=== PATIENT | female | born 1965 | race Caucasian/White ===

== ENCOUNTER → 2020-09-27 15:29 | Outpatient (CLI) | payer OTHER, SELFPAY ==
--- NOTE | ~2020-09-27 | MM_ITS ---
EXAMINATION: MM screening [facility] BI w dea HISTORY: Screening TECHNIQUE: Craniocaudal and mediolateral oblique 3-D tomosynthesis images were obtained and synthetic 2-D images were generated. CAD analysis was submitted and interpreted. COMPARISON: Comparison to multiple prior studies sequentially, with oldest reviewed study dated 11/2012. BREAST PARENCHYMAL COMPOSITION: There are scattered areas of fibroglandular density. FINDINGS: There is no evidence of suspicious mass, calcification, or architectural distortion to sugg est malignancy in either breast. There has been no suspicious interval change. IMPRESSION: 1. No mammographic evidence of malignancy. 2. Recommend routine screening mammography in one year. BI-RADS Category 1: Negative Reviewed, dictated and finalized at location A. D SOFTWARE ENGINEER
== END ==
PROVIDERS: Visit Provider Nurse Practitioner Obstetrics & Gynecology
DX: Z12.31 Encounter for screening mammogram for malignant neoplasm of breast (principal)
CPT/HCPCS: 77063; 77067

== ENCOUNTER 2024-02-22 12:07 | Outpatient (CLI) | payer OTHER, SELFPAY ==
[2024-02-22 18:42] LABS: Alanine Aminotransferase 51 U/L (6-35); Albumin Level 4.6 g/dL (3.5-5.1); Alkaline Phosphatase 111 U/L (38-126); Anion Gap 11 mmol/L (4-12); Aspartate Amino Transferase 74 U/L (14-36); Bilirubin,Total 0.6 mg/dL (0.2-1.3); Blood Urea Nitrogen 16 mg/dL (7-17); Calcium 9.8 mg/dL (8.4-10.2); Carbon Dioxide 27 mmol/L (22-30); Chloride 100 mmol/L (98-107); Cholesterol 198 mg/dL (0-200); Estimated Glomerular Filt Rate > 60; Glucose 92 mg/dL (65-110); HDL Direct 50 mg/dL; Magnesium 2.1 mg/dL (1.6-2.3); Potassium 4.3 mmol/L (3.4-5.0); Sodium 138 mmol/L (137-145); Triglycerides 134 mg/dL (<150)
[2024-02-22 18:52] LABS: Basophils Absolute Auto 0.1 K/mm3 (0.0-0.1); Basophils Percent Auto 0.6 % (0.2-1.2); Eosinophils Absolute Auto 0.1 K/mm3 (0-0.3); Eosinophils Percent Auto 0.6 % (0-4.4); Hematocrit 42.3 % (37.0-47.0); Hemoglobin 13.2 g/dL (12.0-15.0); Immature Granulocyte Absolute 0.04 K/mm3 (0.00-0.031); Immature Granulocyte Percent A 0.5 % (0-0.5); Lymphocytes Absolute Auto 1.88 K/mm3 (0.9-3.2); Lymphocytes Percent Auto 21.2 % (18.3-44.2); Mean Corpuscular HGB Conc 31.2 g/dl (32-36); Mean Corpuscular Hemoglobin 26.1 pg (26-34); Mean Corpuscular Volume 83.8 fl (80-100); Mean Platelet Volume 9.5 fl (7.4-10.4); Monocytes Absolute Auto 0.8 K/mm3 (0.1-0.6); Monocytes Percent Auto 8.9 % (2.6-8.5); Neutrophils Percent Auto 68.2 % (45.5-73.1); Platelet Count Result 325 k/mm3 (150-375); Red Blood Count 5.05 M/mm3 (4.2-5.4); White Blood Count 8.9 K/mm3 (4.5-10.0)
[2024-02-22 18:53] LABS: LDL Cholesterol Direct 111 mg/dL
[2024-02-22 19:11] LABS: Hemoglobin A1C 6.1 % (<5.7)
[2024-02-22 19:48] LABS: Folic Acid 14.5 ng/mL (2.76->20)
== END 2024-02-22 12:08 | disposition home or self-care (01) ==
PROVIDERS: PCP Nurse Practitioner Adult Health; Visit Provider Nurse Practitioner Adult Health
DX: E66.9 Obesity, unspecified (principal); I10 Essential (primary) hypertension; Z13.9 Encounter for screening, unspecified
CPT/HCPCS: 36415; 80053; 80061; 82607; 82746; 83036; 83735; 84443; 85025

== ENCOUNTER 2024-02-29 09:51 | Outpatient (CLI) | payer OTHER, SELFPAY ==
--- NOTE | ~2024-02-29 | CT_ITS ---
CT Scan of the Chest without Contrast: Clinical Indication: Chronic cough Technique: Contiguous sections were acquired throughout the chest without intravenous contrast. Dose reduction technique was used on this scan by utilizing automated exposure control and iterative recon struction technique. The dose-length product (DLP) was 309.02 mGy-cm. Findings: There is no evidence of any significant mediastinal, hilar or axillary lymphadenopathy. The mediastin al soft tissues appear normal. There is no evidence of pleural or pericardial effusion. The lungs are clear, aside from calcified right basilar granuloma. Images through the upper abdomen reveal no abnormalities. There are mild chronic compression deformit ies in the midthoracic spine. Impression: No significant abnormalities seen. Reviewed, dictated and finalized at location . Impression: No significant abnormalities seen.
== END 2024-02-29 09:52 ==
LOC: MICIMG 09:52
PROVIDERS: PCP Nurse Practitioner Adult Health; Visit Provider Nurse Practitioner Adult Health
DX: R05.3 Chronic cough (principal)
CPT/HCPCS: 71250

== ENCOUNTER 2024-03-09 09:36 | Outpatient (CLI) | payer OTHER, SELFPAY ==
--- NOTE | ~2024-03-09 | MM_ITS ---
EXAMINATION: MM screening [facility] BI w dea HISTORY: Screening TECHNIQUE: Craniocaudal and mediolateral oblique 3-D tomosynthesis images were obtained and synthetic 2-D images were generated. CAD analysis was submitted and interpreted. COMPARISON: Comparison to multiple prior studies sequentially, with oldest reviewed study dated 10/08. BREAST PARENCHYMAL COMPOSITION: Not Dense. The breasts are almost entirely fatty. FINDINGS: There is no evidence of suspicious mass, calcification, or architectural distortion to sugg est malignancy in either breast. There has been no suspicious interval change. IMPRESSION: 1. No mammographic evidence of malignancy. 2. Recommend routine screening mammography in one year. BI-RADS Category 1: Negative Reviewed, dictated and finalized at location B.
== END 2024-03-09 09:37 ==
LOC: MICIMG 09:37
PROVIDERS: PCP Nurse Practitioner Adult Health; Visit Provider Nurse Practitioner Adult Health
DX: Z12.31 Encounter for screening mammogram for malignant neoplasm of breast (principal)
CPT/HCPCS: 77063; 77067

== ENCOUNTER 2024-03-29 09:40 | Outpatient (CLI) | payer OTHER, SELFPAY ==
[2024-03-29 19:45] LABS: D Dimer 0.33 ug/mL (<0.48)
== END 2024-03-29 09:41 | disposition home or self-care (01) ==
LOC: ANHBWCLAB 09:43
PROVIDERS: PCP Nurse Practitioner Adult Health; Visit Provider Nurse Practitioner Adult Health
DX: R05.3 Chronic cough (principal)
CPT/HCPCS: 36415; 85380

== ENCOUNTER 2024-04-11 09:53 | Outpatient (CLI) | payer OTHER, SELFPAY ==
--- NOTE | 2024-04-13 08:40 | WPDPFTINT ---
PFT Procedure Performed PFT Procedure Performed Spirometry with Pre/Post Bronchodilator Plethysmography (Lung Vol) Diffusing Cap (DLCO) Flow Vol Loop PFT Interpretation Lung volumes were measured with the body plethysmography method. Lung volumes are unremarkable. Spirometry showed normal expiratory flow rates and a normal FEV1 to FVC ratio of 75%. Following administration of a bronchodilator there was no significant increase in expiratory flow rates. Lung diffusion capacity is within the normal range at 83% predicted. The flow-volume loop is unremarkable. Impression: Spirometry, lung volumes, and lung diffusion capacity all within the normal range.
--- NOTE | 2024-04-13 08:41 | WPDSIXMINUTE ---
Six Minute Walk Procedure Procedure Performed Pulmonary Stress Test (6 min walk) Six Minute Walk Six Minute Walk: This 6 minute walk test was carried out with the patient breathing ambient air. The baseline pre walk oxyhemoglobin saturation was 99%. The patient walked 335 m with no stops during testing. During the walk the oxyhemoglobin saturation remained in the range of 98% to 100%. Impression: No evidence of oxyhemoglobin desaturation on this testing.
== END 2024-04-11 09:54 | disposition home or self-care (01) ==
LOC: ANHPFT 09:55
PROVIDERS: PCP Nurse Practitioner Adult Health; Visit Provider Physician Assistant
DX: R05.9 Cough, unspecified (principal); R06.02 Shortness of breath
CPT/HCPCS: 94060; 94618; 94726; 94729

== ENCOUNTER 2024-05-31 12:40 | Outpatient (CLI) | payer OTHER, SELFPAY ==
[2024-05-31 21:19] LABS: Alanine Aminotransferase 56 U/L (6-35); Albumin Level 4.6 g/dL (3.5-5.1); Alkaline Phosphatase 88 U/L (38-126); Anion Gap 12 mmol/L (4-12); Aspartate Amino Transferase 68 U/L (14-36); Bilirubin,Total 0.5 mg/dL (0.2-1.3); Blood Urea Nitrogen 14 mg/dL (7-17); Calcium 9.7 mg/dL (8.4-10.2); Carbon Dioxide 25 mmol/L (22-30); Chloride 100 mmol/L (98-107); Estimated Glomerular Filt Rate > 60; Glucose 104 mg/dL (65-110); Sodium 137 mmol/L (137-145)
[2024-05-31 22:05] LABS: Hemoglobin A1C 5.9 % (<5.7)
== END 2024-05-31 12:41 | disposition home or self-care (01) ==
LOC: ANHBWCLAB 12:41
PROVIDERS: PCP Nurse Practitioner Adult Health; Visit Provider Nurse Practitioner Adult Health
DX: R73.03 Prediabetes (principal); I10 Essential (primary) hypertension; Z51.81 Encounter for therapeutic drug level monitoring; Z79.899 Other long term (current) drug therapy
CPT/HCPCS: 36415; 80053; 82607; 83036; 84443

== ENCOUNTER 2024-10-31 15:12 | Outpatient (CLI) | payer OTHER, SELFPAY ==
--- OUTSIDE RECORDS SUMMARY | 2024-10-31 16:34 | XMS_ITS | Clinical Summary ---
Author Organization [facility] Address [facility] [place] [address] Care Team Providers Care Plumber'S Assistant Name Role Phone Unavailable Primary Care Provider Unavailabl e Source Comments [facility],non-owned Affiliates and Associated Physician Practices is amultiple site organization consisting of ambulatory clinics and hospital sitesin [place], [place], [place]. This disclosure is being madepursuant to the Care Everywhere program and may not contain all information available regarding this patient. Last updated 18.[facility] Allergies Active Allergy Reactions Criticality Noted Date Comments Codeine Other,Rash Medium 10/16/2016 Reaction: neel, Goyo Penicillins Other Low 10/16/2016 shakes Medications * Be aware that medications may not be up to date on this document. Alwaysverify current medications with the patient. Medication Sig Dispensed Refills Start Date End Date Status Loratadine 10 MG Take 10 mg by mouth once daily Active metoprolol tartrate (LOPRESSOR) 50 MG tablet Take 50 mg by mouth 2 times daily 02/03/2018 Active pantoprazole EC (PROTONIX) 40 MG tablet Take 40 mg by mouth 02/03/2018 Active fluticasone propionate (FLONASE) 50 MCG/ACT nasal spray [place] 1 spray into each nostril 2 times daily 1 bottles 11/15/2018 Active benzonatate (TESSALON) 200 MG capsule Take 1 capsule by mouth 3 times daily as needed for Cough 30 capsule 11/15/2018 Active Social History Tobacco Use Types Packs/Day Years Used Date Smoking Tobacco: Never Assessed Sex and Gender Information Value Date Recorded Sex Assigned at Not on file Gender Identity Not on file Sexual Orientation Not on file Last Filed Vital Signs Vital Sign Reading Time Taken Comments Blood Pressure 108/60 11/15/2018 12:22 PM CDT Pulse 79 11/15/2018 12:22 PM CDT Temperature 36.8 C (98.3 F) 11/15/2018 12:22 PM CDT Respiratory Rate - - Oxygen Saturation 97% 11/15/2018 12:22 PM CDT Inhaled Oxygen Concentration - - Weight 63.5 kg (140 lb) 11/15/2018 12:22 PM CDT Height 154.9 cm (5' 1 ) 11/15/2018 12:22 PM CDT Body Mass Index 26.45 11/15/2018 12:22 PM CDT Plan of Treatment Health Maintenance Due Date Last Done Comments COLOGUARD (AGES 45-75) - COL ON CA SCREENING 1964 COLON MONITORING 1964 COLONOSCOPY - COLON CA SCREENING 1964 CT COLONOGRAPHY - COLON CA SCREENING 1964 Colorectal Cancer Screening 1964 FIT - COLON CA SCREENING 1964 FLEX SIG - COLON CA SCREENING 1964 LIPID TESTING 1964 MAMMOGRAM 1964 PAP SMEAR 1964 HIV SCREENING 1979 HEPATITIS C SCREENING 08/02/1982 DTAP/TDAP/TD VACCINES (1 - Tdap) 1983 PNEUMOCOCCAL VACCINE 50+ (1 of 1 - PCV) 2014 ZOSTER VACCINE (1 of 2) 2014 SCREENING FOR DIABETES 11/15/2018 COVID-19 VACCINE ( - 2023-2 5 season) 2024 DEPRESSION SCREENING 07/26/2024 INFLUENZA VACCINE (Season Ended) 2025 Respiratory Syncytial Virus (RSV) Vaccine Pt: or over 60 yrs (1 - 1-dose 75+ series) 2039 HEPATITIS B VACCINE Aged Out No longe r eligible based on patient's age to complete this topic HIB VACCINE Aged Out No longer eligi ble based on patient's age to complete this topic HPV VACCINE Aged Out No longer eligi ble based on patient's age to complete this topic MENINGOCOCCAL (Group B) VACC INE SHARED DECISION-MAKING Aged Out No longer eligibl e based on patient's age to complete this topic MENINGOCOCCAL GROUPS A/C/Y/W VACCINE Aged Out No longer eligible b ased on patient's age to complete this topic PNEUMOCOCCAL VACCINE Aged Out No long er eligible based on patient's age to complete this topic Cha Spicer Personal/Family Self 1965 [address] [id number]
--- OUTSIDE RECORDS SUMMARY | 2024-10-31 16:34 | XMS_ITS | Clinical Summary ---
Author Organization [facility] [place] Address [address] [place] [address] Care Team Providers Care Liner Installer Name Role Phone Hari Zheng MD Primary Care Provider [phone] Allergies Active Allergy Reactions Criticality Noted Date Comments Codeine Other (See Comments),Rash Low 10/16/2016 Reaction: shaky, Shakes Penicillins Other (See Comments) Low 10/16/2016 shakes Sulfamethoxazole-Trimet hoprim Unknown 10/01/2023 Medications cetirizine (ZyrTEC) 10 mg tabletIndication s:Seasonal allergic rhinitis, unspecified trigger Take 1 Tablet (10 mg) by mouth daily at bedtime. 0 2 Active famotidine (PEPCID) 20 mg tablet Take 1 Tablet (20 mg) by mouth 2 times daily. 60 Tablet 3 Active albuterol sulfate HFA 90 mcg/actuation aerosol inhaler Take 1 Puff by inhalation every 6 hours as needed. Active fluticasone furoate (ARNUITY) 200 mcg/actuation inhaler Take 200 mcg by inhalation daily. Active esomeprazole (NexIUM) 40 mg Capsule, Delayed Release(E.C.)Ind ications:Gastroe sophageal reflux disease, unspecified whether esophagitis present Take 1 Capsule (40 mg) by mouth daily before breakfast. 90 Capsule 4 Active Breztri Aerosphere 160 mcg-9mcg-4.8mcg/ actuation HFA aerosol inhaler 4 Active metFORMIN (FORTAMET) 500 mg Extended Release 24 hour tablet Take 500 mg by mouth daily with breakfast. Active montelukast (SINGULAIR) 10 mg tablet 4 Active PARoxetine HCl (PAXIL) 20 mg tablet 20 mg. 4 Active Xhance 93 mcg/actuation Aerosol Breath Activated 4 Active ipratropium bromide (ATROVENT) 21 mcg (0.03 %) [place], Non-Aerosol 4 Active hydroCHLOROthiaz mateus (MICROZIDE) 12.5 mg capsuleIndicatio ns:HTN (hypertension), benign Take 1 Capsule (12.5 mg) by mouth daily. 90 Capsule 4 Active Active Problems Problem Noted Date Diagnosed Date Bradycardia 01/19/2022 Low HDL (under 40) 01/19/2022 Acid reflux 08/13/2020 Vaginal atrophy 07/17/2020 Anxiety state 05/15/2020 Allergic rhinitis 09/09/2018 HTN (hypertension), benign 04/08/2018 Vaginitis and vulvovaginitis 09/21/2011 Encounters Date Type Department Care Team Description 10/24/2024 External Device Data [facility] ABSTRACTION Provider, Abstract 10/11/2024 External Device Data [facility] ABSTRACTION Provider, Abstract 10/04/2024 External Device Data [facility] ABSTRACTION Provider, Abstract 10/03/2024 External Device Data [facility] ABSTRACTION Provider, Abstract 10/02/2024 External Device Data [facility] ABSTRACTION Provider, Abstract 09/30/2024 External Device Data [facility] ABSTRACTION Provider, Abstract 09/29/2024 External Device Data [facility] ABSTRACTION Provider, Abstract 09/27/2024 External Device Data [facility] ABSTRACTION Provider, Abstract 09/13/2024 External Device Data [facility] ABSTRACTION Provider, Abstract 08/17/2024 External Device Data [facility] ABSTRACTION Provider, Abstract 08/08/2024 External Device Data [facility] ABSTRACTION Provider, Abstract from Last 3 Months Immunizations Immunization Administration Dates Next Due (INFANRIX)(6 WKS-6 YRS) DIPT HERIA, TETANUS TOXOIDS, AND ACCELLULAR PERTUSSIS VACCINE (DTAP), 0.5 ML IM 10/17/2013 Family History Medical History Relation Name Comments Unknown Brother 1 No Known Problems Brother 2 No Known Problems Daughter Unknown Father Unknown Maternal Grandfather Unknown Maternal Grandmother Other Mother guillian barre syndrome Unknown Paternal Grandfather Unknown Paternal Grandmother Crohn's Disease Son Relation Name Status Comments Brother 1 Brother 2 Alive Daughter Alive Father Maternal Grandfather Maternal Grandmother Mother Paternal Grandfather Paternal Grandmother Son Alive Social History Tobacco Use Types Packs/Day Years Used Date Smoking Tobacco: Never Smokeless Tobacco: Never Alcohol Use Standard Drinks/Week Comments No 0 (1 standard drink = 0.6 oz pur e alcohol) Comments No Sex and Gender Information Value Date Recorded Sex Assigned at Not on file Legal Sex Female 9:19 AM CDT Gender Identity Not on file Sexual Orientation Not on file Last Filed Vital Signs Vital Sign Reading Time Taken Comments Blood Pressure 128/78 07/10/2024 1:39 PM BOOKBINDING MACHINE OPERATOR Pulse 85 07/10/2024 1:39 PM BOOKBINDING MACHINE OPERATOR Temperature 37.1 C (98.8 F) 07/10/2024 1:39 PM BOOKBINDING MACHINE OPERATOR Respiratory Rate 18 07/10/2024 1:39 PM BOOKBINDING MACHINE OPERATOR Oxygen Saturation 98% 07/10/2024 1:39 PM BOOKBINDING MACHINE OPERATOR Inhaled Oxygen Concentration - - Weight 73.5 kg (162 lb) 07/10/2024 1:39 PM BOOKBINDING MACHINE OPERATOR Height 154.9 cm (5' 1 ) 07/10/2024 1:39 PM BOOKBINDING MACHINE OPERATOR Body Mass Index 30.61 07/10/2024 1:39 PM BOOKBINDING MACHINE OPERATOR Plan of Treatment Upcoming Encounters Date Type Department Care Team (Late st Contact Info) Description 01/01/2025 2:00 PM CDT Office Visit [facility] [employer] [place] [address] [place] [address] Rehana Lu, ANP [address] [facility] Tatyana Pres[address] [place] [address] Health Maintenance Due Date Last Done Comments HPV/Cotest (21-29) 1985 HPV/Cotest (30-65) 1994 FIT-DNA Q 3 years 2009 Flex Sig/CT Colonography Q 5 years 2009 BREAST CANCER SCREENING 12/24/2018 12/25/19 18 (Previously completed) FIT/FOBT Q 1 year 09/24/2019 09/23/2018 CERVICAL CANCER SCREENING 09/23/2021 PAP SMEAR 09/23/2021 09/23/2018 PAP SMEAR 09/23/2021 09/23/2018, 09/23/2018 COLORECTAL SCREENING 12/24/2022 12/24/2017 (Previously completed), 08/26/2014 Colorectal Cancer Screening 12/24/2022 DTAP/TDAP/TD VACCINES (2 - Tdap) 10/18/2023 10/17/2013 INFLUENZA VACCINE (#1) 2024 05/22/2022 Pre-Diabetes and Diabetes Screening 01/12/2025 01/12/2022 ZOSTER VACCINE (1 of 2) 02/25/2026 Post poned from 2014 (Patient Refused) RSV VACCINE (60+ or ) (1 - 1-dose 75+ series) 2039 HEPATITIS B VACCINES Aged Out No long er eligible based on patient's age to complete this topic Procedures Procedure Name Priority Date/Time Associated Diagnosis Comments HEMOGLOBIN A1C Routine 01/12/2022 7:14 AM CDT Encounter for annual physical exam CERV/VAG CYTO SCREEN PAP W/O HPV Routine 09/23/2018 10:25 AM BOOKBINDING MACHINE OPERATOR Screening for cervical cancer POC OCCULT BLOOD 1 CARD Routine 09/23/2018 10:07 AM BOOKBINDING MACHINE OPERATOR Screening for condition from Last 3 Months or Most Recently Relevant to Health Maintenance Results * HEMOGLOBIN A1C (01/12/2022 7:14 AM CDT) HEMOGLOBIN A1C 5.6 <5.7 % of total Hgb [facility] Comment: For the purpose of screening for the presence of diabetes: <5.7% Consistent with the absence of diabetes 5.7-6.4% Consistent with increased risk for diabetes (prediabetes) > or =6.5% Consistent with diabetes This assay result is consistent with a decreased risk of diabetes. Currently, no consensus exists regarding use of hemoglobin A1c for diagnosis of diabetes in children. According to [place] Diabetes Association (ADA) guidelines, hemoglobin A1c <7.0% represents optimal control in non- diabetic patients. Different metrics may apply to specific patient populations. Standards of Medical Care in Diabetes(ADA). ESTIMATED AVERAGE GLUCOSE (MG/DL) 114 mg/dL [facility] ESTIMATED AVERAGE GLUCOSE (MMOL/L) 6.3 mmol/L [facility] Comment: Test Performed at: [facility] [address] [address] [facility] [place] [address] Arnoldo Estrada D.O., MPH Blood 01/12/2022 7:14 AM CDT 01/13/2022 4:51 AM CDT Sarah Cramer TELEMARKETING SALES REPRESENTATIVE CHEMISTRY ORDERABLES F inal Result [facility] [phone] * CERV/VAG CYTO SCREEN PAP W/O HPV (09/23/2018 10:25 AM BOOKBINDING MACHINE OPERATOR) DIAGNOSIS (PAP): Comment [facility] Comment:UNSATISFACTORY FOR E VALUATION. Meal Attendant Recommendation Comment [facility] Comment:Suggest follow up as clinically appropriate. ADEQUACY: Comment [facility] Comment: Specimen processed and examined but unsatisfactory for evaluation of epithelial abnormality because of insufficient cellularity. CLINICIAN PROVIDED ICD10 Comment [facility] Comment:Z12.4 PERFORMED BY (PAP): Comment [facility] Comment:Laurel Johnson, Cytot echnologist (ASCP) QC REVIEWED BY: Comment [facility] Comment:Sophia Padilla Dispatcher Motor Vehicle (ASCP) RESULT (PAP): . [facility] SEE NOTE (PAP): Comment [facility] Comment: The Pap smear is a screening test designed to aid in the detection of premalignant and malignant conditions of the uterine cervix. It is not a diagnostic procedure and should not be used as the sole means of detecting cervical cancer. Both false-positive and false-negative reports do occur. CYTOLOGY NURSE GYNECOLOGY METHODOLOGY CANCELED [facility] Comment: The Thin Prep(R) Emergency Communications Operator was unable to read this specimen. Therefore a manual review was performed. Result canceled by the ancillary Genital SWAB OF ENDOCERVIX / Unknown 09/23/2018 10:25 AM BOOKBINDING MACHINE OPERATOR 09/23/2018 Narrative [facility] - 09/28/2018 12:36 PM BOOKBINDING MACHINE OPERATOR Performed at: [address] [place] [address] [place] [id number] Optical Instrument Specialist: Lilian Avina MD, Phone: [phone] Specimen Comment: No. of containers..01 ThinPrep Vial us Francheska Lewis NP PATHOLOGY/CYTOLOGY BLASMandy ESCALERA Edited Result - Final [facility] [phone] * POC OCCULT BLOOD 1 CARD (09/23/2018 10:07 AM BOOKBINDING MACHINE OPERATOR) OCCULT BLOOD 1 CARD POC Negative Negative [facility] [place] INTERNAL KIT QC Pass Pass [facility] CARD LOT NUMBER POC [id number] [facility] [place] C[place] EXP[place] DATE POC 09/2019 [facility] [place] DEV[place]OPER [address] NUM[address] POC [id number] [facility] [place] EX[place] DATE POC 12/2021 [facility] [place] Stool STOOL SPECIMEN / Unknown 09/23/2018 10:07 AM BOOKBINDING MACHINE OPERATOR us Francheska Lewis NP POINT OF CARE TESTING F inal Result Performing Organization Address [facility] Co de Phone Number [facility] CLIA# [id number] [address] [place] [address] from Last 3 Months or Most Recently Relevant to Health Maintenance Insurance [employer]LEGIAN OPEN ACCESS * Guarantor: [employer] Account Type Relation to Patient Date of Phone Billing Address Corporate Employer ATTN: ARLET SCHUSTER [address] [address] Care Teams Liner Installer Relationship Specialty Start Date End Date Hari Zheng MD [address] [place] [phone] PCP - General Family Practice 03/23/23
--- OUTSIDE RECORDS SUMMARY | 2024-10-31 16:34 | XMS_ITS | Referral Summary ---
Author Organization [facility] Address [address] [place] [address] Care Team Providers Care Director Of Operations Name Role Phone Miscellaneous, Not In File Unavailable Unava Alejandra Dasilva NP Primary Care Provider Encounters Date Type Department Care Team Description 10/06/2024 Telephone [facility] [place] [address] [place] [address] Stefani Castro MA 10/05/2024 2:45 PM CDT Office Visit [facility] [place] [address] [place] [address] Kelly Babin NP Acute bacterial sinusitis (Primary Dx) 08/31/2024 12:00 PM INSPECTION AND TESTING SUPERVISOR Office Visit [facility] [place] [address] [place] [id number] Kelly Babin NP Viral URI with cough (Primary Dx) from Last 3 Months Allergies Active Allergy Reactions Criticality Noted Date Comments Codeine Other (See comments),Rash Medium 10/16/2016 Reaction: shaky, Reaction: shaky, Shakes Penicillins Other (See comments) Low 10/16/2016 shakes Sulfamethoxazole-Trimet hoprim Other (See comments) Low 04/21/2020 Causes shakes Medications atenolol (TENORMIN) 50 mg tablet Take 1 tablet (50 mg total) by mouth 2 times daily 9 Active azelastine (ASTELIN) 137 mcg (0.1 %) nasal spray [address] (NexIUM) 40 mg capsule Take 1 capsule (40 mg total) by mouth daily before breakfast Active PARoxetine (PAXIL) 10 mg tablet paroxetine 10 mg tablet TAKE 1 TABLET EVERY DAY BY ORAL ROUTE. Active fluticasone propionate (FLONASE) 50 mcg/actuation nasal sprayIndication s:Fluid level behind tympanic membrane of right ear Administer 2 sprays into each nostril daily 16 g 5 2 Active Additional Information Patient not taking.Reported on 08/17/2022 ondansetron (Zofran) 4 mg tabletIndicatio ns:Post-nasal drip Take 1 tablet (4 mg total) by mouth every 8 (eight) hours as needed for nausea or vomiting 20 tablet 2 Active metFORMIN (FORTAMET) 500 mg 24 hr tablet Take 1 tablet (500 mg total) by mouth daily with breakfast Active benzonatate (TESSALON) 100 mg capsuleIndicati ons:Cough Take 2 capsules (200 mg total) by mouth 3 (three) times a day as needed for cough 42 capsule 4 Active Additional Information Patient not taking.Reported on 10/05/2024 doxycycline (VIBRAMYCIN) 100 mg capsuleIndicati ons:Acute bacterial sinusitis Take 1 tablet/capsule (100 mg total) by mouth 2 (two) times a day for 7 days 14 tablet/capsu le 5 10/13/19 25 Active Problems Problem Noted Date Diagnosed Date Shortness of breath 04/28/2020 Assessment & Plan (04/28/2020 4:06 AM CDT): With chest pressure. Suspect component of anxiety and stress. Patient states her symptoms seem to have resolved after receiving Ativan. Will also check TSH as patient has had 10 lb unintentional weight loss since her symptoms began. Troponin negative x1. Will repeat. Continue to monitor. Will check ambulatory O2 patient becomes short of breath as she also becomes lightheaded and dizzy. This was discussed with RN. Essential hypertension 04/28/2020 Assessment & Plan (04/28/2020 4:06 AM CDT): Continue atenolol with hold parameters GERD (gastroesophageal reflux disease) 0 Assessment & Plan (04/28/2020 4:06 AM CDT): Continue PPI Hypokalemia 04/28/2020 Assessment & Plan (04/28/2020 4:06 AM CDT): Replacement given. Will await repeat. Replace as needed. Chronic sinusitis 04/28/2020 Assessment & Plan (04/28/2020 4:06 AM CDT): Continue Claritin. Outpatient follow-up with ENT. Anxiety 04/28/2020 Exertional angina Social History Tobacco Use Types Packs/Day Years Used Date Smoking Tobacco: Never Smokeless Tobacco: Never Tobacco Cessation:Counseling Given: Not Answered Alcohol Use Standard Drinks/Week Comments No 0 (1 standard drink = 0.6 oz pur e alcohol) Comments No Sex and Gender Information Value Date Recorded Sex Assigned at Not on file Legal Sex Female 11:49 PM INSPECTION AND TESTING SUPERVISOR Gender Identity Not on file Sexual Orientation Not on file Last Filed Vital Signs Vital Sign Reading Time Taken Comments Blood Pressure 134/76 10/05/2024 2:48 PM CDT Pulse 86 10/05/2024 2:48 PM CDT Temperature 36.7 C (98 F) 10/05/2024 2:48 PM CDT Respiratory Rate 16 10/05/2024 2:48 PM CDT Oxygen Saturation 100% 10/05/2024 2:48 PM CDT Inhaled Oxygen Concentration - - Weight 66.7 kg (147 lb) 10/05/2024 2:48 PM CDT Height 154.9 cm (5' 1 ) 10/05/2024 2:48 PM CDT Body Mass Index 27.78 10/05/2024 2:48 PM CDT Plan of Treatment Not on file Procedures Procedure Name Priority Date/Time Associated Diagnosis Comments POC INFLUENZA A/B, COVID-19 ANTIGEN Routine 08/31/2024 12:35 PM INSPECTION AND TESTING SUPERVISOR Viral URI with cough from Last 3 Months Results * POC Influenza A/B, COVID-19 antigen (08/31/2024 12:35 PM INSPECTION AND TESTING SUPERVISOR) Influenza A Ag, POC Negative Negative [facility] Influenza B Ag, POC Negative Negative [facility] COVID-19 Ag POC Presumptive Negative Presumptive Negative, Invalid [facility] Nasal 08/31/2024 12:3 5 PM INSPECTION AND TESTING SUPERVISOR us Kelly Babin STUD MASTER/MISTRESS POINT OF CARE TEST ORDERABLES Final Result [facility] [address] [place] [address], [facility] from Last 3 Months Insurance [facility] [employer] Advance Directives For more information, please contact: [phone] * Full Code (Latest Code Status on File) Date Activated Date Inactivated Comments 04/27/2020 9:34 PM 04/28/2020 4:30 PM Care Teams Director Of Operations Relationship Specialty Start Date End Date Alejandra Malave NP [address] [place] [id number] PCP - General Nurse Practitioner 02/23/24 Miscellaneous, Not In File 04/28/20
--- OUTSIDE RECORDS SUMMARY | 2024-10-31 16:34 | XMS_ITS | Clinical Summary ---
Author Organization [facility] Address [address] [place] [address] Care Team Providers Care Medical Billing Representative Name Role Phone Miscellaneous, Not In File Unavailable Unava Alejandra Dasilva NP Primary Care Provider [phone] Allergies Active Allergy Reactions Criticality Noted Date [...] follow-up with ENT. Anxiety 04/28/2020 Exertional angina Encounters Date Type Department Care Team Description 10/06/2024 Telephone [facility] [place] [address] [place] [address] Stefani Castro VALARIE 10/05/2024 2:45 PM CDT Office Visit [facility] at [address] [place] [address] Kelly Babin NP Acute bacterial sinusitis (Primary Dx) 08/31/2024 12:00 PM FLIGHT ENGINEER MANAGER Office Visit [facility] at [address] [place] [address] Kelly Babin NP Viral URI with cough (Primary Dx) from Last 3 Months Surgical History Surgery Date Site/Laterality Comments SECTION section OTHER SURGICAL HISTORY polyps: sinus surgery TUBAL LIGATION Bilateral tubal ligation OTHER SURGICAL HISTORY D&C Medical History Medical History Date Comments Endometritis endometriosis Hx Other Medical Headache, migra ine Hx Other Medical polyps Hx Other Medical lumbago Hx Other Medical 01-mat roller Hx Other Medical 02-ENT GERD (gastroesophageal reflux disease) Hypertension Family History Medical History Relation Name Comments Other Father AIDS; Cause of : AIDS/HIV; Hypertension Mother Hypertension; Other Mother Alive and well; Relation Name Status Comments Father Alive Mother Alive Social History Tobacco Use Types Packs/Day Years Used Date Smoking Tobacco: Never Smokeless Tobacco: Never Tobacco Cessation:Counseling Given: Not Answered Alcohol Use Standard Drinks/Week Comments No 0 (1 standard drink = 0.6 oz pur e alcohol) Comments No Sex and Gender Information Value Date Recorded Sex Assigned at Not on file Legal Sex Female 11:49 PM FLIGHT ENGINEER MANAGER Gender Identity Not on file Sexual Orientation Not on file Obstetrics History Last Filed Vital Signs Vital Sign Reading [...] 10/05/2024 2:48 PM CDT Plan of Treatment Health Maintenance Due Date Last Done Comments Cervical Cancer Screening 1965 Colon Cancer Screening-Colonoscopy 1965 Depression Screening 1965 Hepatitis C Screening 1965 Regular Well Visit/Exam 18-64 1982 Zoster Vaccine (1 of 2) 2014 Breast Cancer Screening-Mammogram 09/27/2021 09/27/2020 DTaP/Tdap/Td Vaccine (2 - Tdap) 10/18/2023 10/17/2013 Influenza Vaccine (Season Ended) 2025 Hepatitis B Screening Completed 01/31/2014 , 12/12/2013 Pneumococcal vaccine <65 Aged Out No longer eligible based on patient's age to complete this topic Procedures Procedure Name Priority Date/Time Associated Diagnosis Comments POC INFLUENZA A/B, COVID-19 ANTIGEN Routine 08/31/2024 12:35 PM FLIGHT ENGINEER MANAGER Viral URI with cough from Last 3 Months Results * POC Influenza A/B, COVID-19 antigen (08/31/2024 12:35 PM FLIGHT ENGINEER MANAGER) Influenza A Ag, POC Negative Negative [facility] Influenza B Ag, POC Negative Negative [facility] COVID-19 Ag POC Presumptive Negative Presumptive Negative, Invalid [facility] Nasal 08/31/2024 12:3 5 PM FLIGHT ENGINEER MANAGER Kelly Babin NP POINT OF CARE TEST ORDERABLES Final Result [facility] [address] [place] [address], [facility] from Last 3 Months Insurance [employer] Advance Directives For more information, please contact: [phone] * Full Code (Latest Code Status on File) Date Activated Date Inactivated Comments 04/27/2020 9:34 PM 04/28/2020 4:30 PM Care Teams Medical Billing Representative Relationship Specialty Start Date End Date Alejandra Malave NP [address] [place] [id number] PCP - General Nurse Practitioner 02/23/24 Miscellaneous, Not In File 04/28/20
--- OUTSIDE RECORDS SUMMARY | 2024-10-31 16:35 | XMS_ITS | Clinical Summary ---
Author Organization [facility] Address [address] [facility], [address] [address] Phone Care Team Providers Care Dinkey Engine Firer/Fireman Name Role Phone Francheska Lewis APRN, ACCOUNTING MACHINE SERVICER Primary Care Provide r Allergies Active Allergy Reactions Criticality Noted Date Comments Codeine Rash,Other (see Comments) Low 10/16/2016 Reaction: shaky, Shakes Penicillins Other (see Comments) Low 10/16/2016 shakes Medications Loratadine 10 MG Capsule Take 10 mg by mouth daily. Active sulfamethoxazole -trimethoprim DS (BACTRIM DS) 800-160 MG TabletIndication s:Dysuria Take 1 Tab by mouth 2 times daily. 14 Tab 11/24/2017 Active pantoprazole (PROTONIX) 40 MG Tablet Delayed Response TAKE 1 TABLET TWICE A DAY BEFORE MEALS 180 Tab 01/17/2019 Active metoprolol tartrate (LOPRESSOR) 50 MG Tablet TAKE 1 TABLET TWICE A DAY 180 Tab 01/17/2019 Active metroNIDAZOLE (FLAGYL) 500 MG Tablet Take 1 Tab by mouth 3 times daily. 30 Tab 05/28/2019 Active Active Problems Problem Noted Date Diagnosed Date Osteoporosis 05/25/2017 Overview (05/31/2017): Bone Density ; GI history; rec prolia Compression fracture of body of thoracic vertebr a 05/12/2017 Osteopenia 05/12/2017 GERD (gastroesophageal reflux disease) 7 HTN (hypertension) 10/16/2016 Ulcer 10/16/2016 Overview (10/16/2016): Gastric; EGD (5-8 years ago); Dr. Dennison Anxiety 10/16/2016 Menopause 10/16/2016 Endometriosis 10/16/2016 Overview (10/16/2016): RIGGER THIRD: [facility] Migraine 10/16/2016 Sinus infection 10/16/2016 Overview (10/16/2016): Hx of sinus surgery Depression 10/16/2016 S/P tonsillectomy 10/16/2016 Immunizations Immunization Administration Dates Next Due DTAP VACCINE 10/17/2013 Family History Medical History Relation Name Comments Other-comment Brother Accidental ove rdose. Other-comment Mother Temple-Weir Relation Name Status Comments Brother Father Health problems unknown. Mother Guillian Weir Social History Tobacco Use Types Packs/Day Years Used Date Smoking Tobacco: Never Smokeless Tobacco: Never Tobacco Cessation:Counseling Given: Yes Alcohol Use Standard Drinks/Week Comments No 0 (1 standard drink = 0.6 oz pur e alcohol) Sexually Active Control Partners Comments Yes Comments No Sex and Gender Information Value Date Recorded Sex Assigned at Not on file Legal Sex Female 11:49 PM CDT Gender Identity Not on file Sexual Orientation Not on file Last Filed Vital Signs Vital Sign Reading Time Taken Comments Blood Pressure 126/73 05/28/2019 9:30 AM CHEF GERMAN Pulse 57 05/28/2019 9:30 AM CHEF GERMAN Temperature 37.2 C (98.9 F) 05/28/2019 7:08 AM CHEF GERMAN Respiratory Rate 16 05/28/2019 9:30 AM CHEF GERMAN Oxygen Saturation 99% 05/28/2019 7:08 AM CHEF GERMAN Inhaled Oxygen Concentration - - Weight 63.5 kg (140 lb) 06/19/2019 10:49 AM CHEF GERMAN Height 154.9 cm (5' 1 ) 05/28/2019 7:08 AM CHEF GERMAN Body Mass Index 26.45 05/28/2019 7:08 AM CHEF GERMAN Plan of Treatment Health Maintenance Due Date Last Done Comments Hepatitis C Virus (HCV) Screening 1965 Hepatitis B Immunization (3 of 3 - Hep B Twinrix 3-dose series) 07/03/2014 01/31/2014, 12/12/2013 Cologuard 2014 Immunochemical Fecal Occult Blood 2014 Pneumococcal Immunization (5 0+ years) (1 of 1 - PCV) 2014 Zoster Immunization (1 of 2) 2014 Colonoscopy 09/28/2022 09/28/2017 Colorectal Cancer Screening 09/28/2022 Influenza Immunization (#1) 2024 SARS-COV-2 Immunization (3 - season) 2024 08/13/2021, 10/01/2020 Respiratory Syncytial Virus (RSV) Immunization (Adult) (1 - 1-dose 75+ series) 2039 09/28/2017 DTaP/Tdap/Td Immunization Discontinued 10/17/2013 Meningococcal Immunization (ACWY) Aged Out No longer eligible based on patient's age to complete this topic Rotavirus Immunization Aged Out No lo nger eligible based on patient's age to complete this topic Insurance Care Teams Dinkey Engine Firer/Fireman Relationship Specialty Start Date End Date Francheska Lewis, TIRE BUILDER HEAVY SERVICE, ACCOUNTING MACHINE SERVICER PCP - General Advanced Practice Nurse 05/28/19
[2024-10-31 19:05] LABS: Basophils Absolute Auto 0.1 K/mm3 (0.0-0.1); Basophils Percent Auto 1.1 % (0.2-1.2); Eosinophils Absolute Auto 0.2 K/mm3 (0-0.3); Eosinophils Percent Auto 3.1 % (0-4.4); Hematocrit 39.8 % (37.0-47.0); Hemoglobin 12.7 g/dL (12.0-15.0); Immature Granulocyte Absolute 0.01 K/mm3 (0.00-0.031); Immature Granulocyte Percent A 0.2 % (0-0.5); Lymphocytes Percent Auto 24.9 % (18.3-44.2); Mean Corpuscular HGB Conc 31.9 g/dl (32-36); Mean Corpuscular Hemoglobin 25.9 pg (26-34); Mean Corpuscular Volume 81.1 fl (80-100); Mean Platelet Volume 9.1 fl (7.4-10.4); Monocytes Percent Auto 15.4 % (2.6-8.5); Neutrophils Absolute Auto 3.6 K/mm3 (1.3-6.7); Neutrophils Percent Auto 55.3 % (45.5-73.1); Platelet Count Result 331 k/mm3 (150-375); Red Blood Count 4.91 M/mm3 (4.2-5.4); Red Cell Distribution Width 16.6 % (11.5-14.5); White Blood Count 6.4 K/mm3 (4.5-10.0)
[2024-10-31 20:12] LABS: Alanine Aminotransferase 20 U/L (6-35); Albumin Level 4.3 g/dL (3.5-5.1); Alkaline Phosphatase 93 U/L (38-126); Anion Gap 9 mmol/L (4-12); Aspartate Amino Transferase 29 U/L (14-36); Bilirubin,Total 0.3 mg/dL (0.2-1.3); Blood Urea Nitrogen 18 mg/dL (7-17); Calcium 9.4 mg/dL (8.4-10.2); Carbon Dioxide 26 mmol/L (22-30); Chloride 103 mmol/L (98-107); Cholesterol 158 mg/dL (0-200); Estimated Glomerular Filt Rate > 60; Glucose 89 mg/dL (65-110); HDL Direct 44 mg/dL; Sodium 138 mmol/L (137-145); Triglycerides 140 mg/dL (<150)
[2024-10-31 20:22] LABS: LDL Cholesterol Direct 82 mg/dL
[2024-10-31 20:38] LABS: Hemoglobin A1C 5.7 % (<5.7)
[2024-10-31 21:19] LABS: Thyroid Stimulating Hormone Reflex 0.537 uIU/mL (0.465-4.68)
== END 2024-10-31 15:13 | disposition home or self-care (01) ==
LOC: ANHBWCLAB 15:14
PROVIDERS: PCP Nurse Practitioner Adult Health; Visit Provider Nurse Practitioner Adult Health
DX: Z13.9 Encounter for screening, unspecified (principal); I10 Essential (primary) hypertension; R73.03 Prediabetes
CPT/HCPCS: 36415; 80053; 80061; 82607; 83036; 83735; 84443; 85025

== ENCOUNTER 2024-11-02 10:42 | Outpatient (CLI) | payer OTHER, SELFPAY ==
--- OUTSIDE RECORDS SUMMARY | 2024-11-02 11:31 | XMS_ITS ---
Author Organization [facility] Address [address] [place] [address] Care Team Providers Care Manager Philosophy Name Role Phone Alejandra Sharif Primary Care Provider Tiffany Forrester Unavailable [phone] Allergies No Known Allergies REASON FOR VISIT Rhinitis follow-up: nasal congestion and drainage occurring year-round. Prior testing negative. ImmunoCaps negative., Chronic lower airways symptoms concerning for possible asthma, cough and shortness of breath. Care managed with [facility] pulmonology. On Breztri with [facility] as-needed. Medications Medication SIG (Take, Route, Frequency, Duration) Notes Start Date End Date Status metFORMIN HCl 500 MG 1 tablet with a nat l Orally Once a day Active Breztri Aerosphere 160-9-4.8 MCG/ACT Inhalation Active Singulair 10 MG 1 tablet Orally Once a day Active Esomeprazole Magnesium 40 MG Oral for 90 Days Active Cyclobenzaprine HCl 10 MG Oral for 10 Days Active Albuterol Sulfate HFA 108 (9 0 Base) MCG/ACT 1 puff as needed Inhalation every 4 hrs Active Social History Tobacco Use: Social History Observation Description Date Details (start date - stop date) Never Smoker NA - NA Tobacco Control (Standard) Question Answer Notes Tobacco use: Nonsmoker Vital Signs Blood pressure systolic 156 mm Hg 05/16/20 24 Blood pressure diastolic 88 mm Hg 024 Height 61 in 05/16/2024 Weight 149.0 lbs 05/16/2024 BMI 28.15 kg/m2 05/16/2024 Oximetry 99 % 05/16/2024 Encounters Encounter Location Date Provider Diagnosis [facility] [address] [place] [address] 05/16/2024 Tiffany Vasquez Hypertrophy of nasal turbinates J34.3 ; Chronic rhinitis J31.0 ; Shortness of breath R06.02 ; Chronic sinusitis, unspecified J32.9 ; Vitamin D deficiency, unspecified E55.9 and Elevated blood-pressure reading, without diagnosis of hypertension R03.0 Assessments Encounter Date Diagnosis (ICD Code) Assessment Notes Treatment Notes Treatment Clinical Notes Section Notes 05/16/2024 Hypertrophy of nasal turbinates (ICD-10 - J34.3) Cha presents with upper airway symptoms concerning for uncontrolled atopic disease. Prior skin testing performed that returned all negative. - Skin testing performed to aeroallergens last visit that was all negative, appropriate controls. Discussed intradermal testing vs ImmunoCaps, Cha chose to have ImmunoCaps drawn, which also returned all negative. Total IgE 4. - Due to these results recommend updated ENT evaluation, Cha voiced understanding. Provided list of local ENT providers 05/16/2024 Chronic rhinitis (ICD-10 - J31.0) See plan above 05/16/2024 Shortness of breath (ICD-10 - R06.02) Cha reports history of shortness of breath and cough, exacerbated by illness. Reports she recently recovered form bronchitis. Cha recently established care with pulmonology, she is being seen at Dr. Hawkins's office. She is prescribed Breztri and albuterol. - Cha reports having a PFT completed a few weeks ago, records were requested again today. Due to cost deferred additional spirometry. - Continue per Pulmonology while awaiting records 05/16/2024 Chronic sinusitis, unspecified (ICD-10 - J32.9) Cha reports frequent sinus infections occurring 3-4 times per year meeting JMF criteria for modified PIDD work-up. - Work-up showed inadequate protection to S. pneumo, she has since received Pneumovax. She will be due for repeat titers in 2-4 weeks, order sent to [facility]. - Recommend ENT evaluation as above 05/16/2024 Vitamin D deficiency, unspecified (ICD-10 - E55.9) Normal with recent check 05/16/2024 Elevated blood-pressure reading, without diagnosis of hypertension (ICD-10 - R03.0) BP elevated today without symptoms of urgency or emergency. Continue serial checks and follow-up with PCP 05/16/2024 Other Plan Of Treatment Medication Medication Name Sig Start Date Stop Date Notes Breztri Aerosphere 160-9-4.8 MCG/ACT Inhalation Singulair 10 MG 1 tablet Orally Once a day Albuterol Sulfate HFA 108 (9 0 Base) MCG/ACT 1 puff as needed Inhalation every 4 hrs Treatment Notes Assessment Notes Hypertrophy of nasal turbinates Cha presents with upper airway symptoms concerning for uncontrolled atopic disease. Prior skin testing performed that returned all negative. - Skin testing performed to aeroallergens last visit that was all negative, appropriate controls. Discussed intradermal testing vs ImmunoCaps, Cha chose to have ImmunoCaps drawn, which also returned all negative. Total IgE 4. - Due to these results recommend updated ENT evaluation, Cha voiced understanding. Provided list of local ENT providers Chronic rhinitis See plan above Shortness of breath Cha reports history of shortness of breath and cough, exacerbated by illness. Reports she recently recovered form bronchitis. Cha recently established care with pulmonology, she is being seen at Dr. Hawkins's office. She is prescribed Breztri and albuterol. - Cha reports having a PFT completed a few weeks ago, records were requested again today. Due to cost deferred additional spirometry. - Continue per Pulmonology while awaiting records Chronic sinusitis, unspecified Cha reports frequent sinus infections occurring 3-4 times per year meeting JMF criteria for modified PIDD work-up. - Work-up showed inadequate protection to S. pneumo, she has since received Pneumovax. She will be due for repeat titers in 2-4 weeks, order sent to [facility]. - Recommend ENT evaluation as above Vitamin D deficiency, unspecified Normal with recent check Elevated blood-pressure read ing, without diagnosis of hypertension BP elevated today without symptoms of urgency or emergency. Continue serial checks and follow-up with PCP Pending Test Test Name Order Date S. PNEUMONIAE IGG AB, 23 SEROTYPES, S Next Appt Details Follow Up: 2-3 Months, Reaso n: Evaluation and Management Progress Notes * Sergo SPICER:1965 ( 58 yo F)Acc No.[id number]:05/16/2024 Progress Notes Patient: Cha NICHOLSON Provider: Leah Vasquez DNP CREW ATTENDANTIgorC :1965 A ge:58 Y S ex:Female Date:05/16/2024 Address:[address] [place], [place] [id number] Pcp:Alejandra Malave, ANP- Subjective: * Chief Complaints: * R hinitis follow-up: nasal congestion and drainage occurring year-round. Prior testing negative. ImmunoCaps negative.Chronic lower airways symptoms concerning for possible asthma, cough and shortness of breath. Care managed with [facility] pulmonology. On Breztri with ROMULO as-needed. * HPI: * Introduction: I had the pleasure of seeing Shannan Spicer, a 58-year-old female who returns for laboratory review. She returns in consultation with her PCP,DIANA Malave. Her granddaughter is with her for today's visit. Cha endorses upper airway symptomsconcerning for uncontrolled atopic disease. She reports previously seeing a different on site nurse, where shehad testing completed that was all negative. She does not have pets in [facility]. She currently takes Singulair, Zyrtec and Flonase with some notedbenefit. Last visit underwent SPT that was negative, ImmunoCaps ordered that also returned negative, total IgE was 4. Cha also reports frequent sinus infections occurring 3-4 times peryear requiring antibiotics. She reports undergoing sinus surgery many yearsago. No recent ENT evaluation. Modified PIDD work-up ordered that showed inadequate protection to S. pneumo, recently received Pneumovax, not yet due for repeat titers. Additionally, Cha reports history of occasional cough andshortness of breath. She is managed by pulmonology at [facility], unsurewho her provider is. She uses Breztri daily. Cha feels Breztri is beneficial,however admits to recent bronchitis that has caused lingering cough. Shereports having a PFT completed approximately three weeks ago, she is unsure onthe results. No history of hospitalizations due to lower airway symptoms. Records not available for review. Today, she reports no fevers, chills, night sweats or other constitutional symptoms. * ROS: A LLERGY: runny nose N o. s cratchy throat N o. i tchy eyes Y es. e ar fullness N o. s inus congestion Y es. P ositive p er the HPI and history, otherwise unremarkable. S PECIAL SENSES: Positve for n one. c ataracts N o. g laucoma?No. l oss of hearing N o. i tching in ears N o. r inging in ears Y es.?loss of balance N o. l oss of smell N o. d ry eyes N o. e xcessive tearing N o. i tching eyes N o. l oss of taste N o. c onjunctivitis N o. e ar infections N o. C ONSTITUTIONAL: weight gain N o. l oss of appetite N o. f ever?No. w eakness N o. w eight loss Y es. f atigue N o. n ight sweats?No. P ositive for n one. E NT: cold N o. c ough N o. e pistaxis N o. h earing loss N o. c hange in voice N o. s ore throat N o. r inging in ears?Yes. s inus pain N o. P ositive p er the HPI and history, otherwise unremarkable. R ESPIRATORY: shortness of breath Y es. c hest pain N o. c hest congestion Y es. c ough Y es. P ositive p er the HPI and history, otherwise unremakable. O PHTHALMOLOGY: diminished vision N o. e ye irritation N o. d rainage from eyes Y es. b lurring of vision N o. s easonal eye sx N o. P ositive for p er the HPI and history, otherwise unremarkable. i tching N o. s ensitivity to light N o. d ischarge N o. w atering N o. s welling of the eyelids N o. r edness N o. E NDOCRINOLOGY: fatigue N o. p olydipsia N o. p olyuria Y es. w eight loss Y es. s leep disturbance N o. c old intolerance Y es. h eat intolerance Y es. d iabetes Y es. P ositive for n one. C ARDIOLOGY: chest pain N o. p alpitations Y es. l eg edema?No. d izziness N o. s hortness of breath Y es. P ositive for n one.? G ASTROENTEROLOGY: dysphagia Y es. a bdominal pain N o. n ausea?No. v omiting N o. c onstipation N o. d iarrhea N o. b lood in stool?No. i ndigestion Y es. h emorrhoids N o. P ositive for n one. ? U ROLOGY: difficulty urinating N o. b lood in urine N o. f requent urination N o. u rinary incontinence N o. r ecurrent UTI N o. P ositive for n one. D ERMATOLOGY: rash N o. m ole N o. l umps N o. d ry or sensitive skin N o. h stephan (urticaria) N o. a cne N o. s kin cancer N o. P ositive for p er the HPI and history, otherwise unremakable. N EUROLOGY: headache N o. t ingling numbness N o. s eizures?No. i nsomnia N o. m adalid loss N o. d izziness N o. g ait abnormality N o. P ositive for n one. H EMATOLOGY/LYMPH: Positive for n one. M USCULOSKELETAL: joint swelling N o. j oint pain N o. l eg cramps Y es. j oint stiffness N o. s ciatica N o. o steoporosis Y es. f racture N o. c arpal tunnel N o. g out N o. P ositive for n one. ? P SYCHOLOGY: high stress level Y es. d epression N o. s leep disturbances N o. s uicidal ideation N o. e ating disorder N o. m ental or physical abuse N o. a nxiety Y es. P ositive for n one. M ARTHUR REPRODUCTIVE: difficulty with erection N o. d iminished sexual drive?No. p enile discharge N o. i nfertility N o. F EMALE REPRODUCTIVE: heavy periods N o. h ot flashes Y es. a bnormal vaginal discharge N o. s exually active Y es. i nfertility N o. f requent yeat infections N o. p elvic pain N o. b reast pain N o. n ipple discharge No. A re you ? N o. A re you planning on a future pregancy? N o. ? A ll other review of systems per the HPI and history, otherwise unremarkable. * Medical History: * Surgical History: N o Surgical History documented. * Hospitalization/Major Diagno stic Procedure: D enies Past Hospitalization * Family History: F ather: . M other: . * Social History: M arital Status What is your marital status? m arried A lcohol Screening Do you ever drink alcoholic beverages? N o S moking Have you ever smoked tobacco: n ever smoked Additional Findings: Tobacco Non-User N on-smoker for medical reasons Are you a : n ever smoker R ecreational drug use Have you ever used recreational drugs? N o D etails on consumption of certain products? Do you regularly consume products with aspartame; Equal or NutraSweet? N o Do you regularly consume products with artificial coloring??No Have you ever noticed worsening of your rash with these food items? N o E xercise What kind(s) of exercise do you perform regularly? w alking,biking How often do you perform this exercise? d aily A re any of the following personal care products containing fragrance, dye or preservatives used regularly? Shampoo: Y es Conditioner: N o Soap: Y es Laundry Detergent: Y es Fabric Softener: N o Deodorant: Y es Perfume, cologne, after shave: Y es Air freshners or other scented products: Y es Hair coloring dyes or rinses: N o Other: N o O ccupation Are you currenly employed? N o Are you currently a student? N o E nvironmental History Living environment: p rivate home Where is the home located? c [place] Age of home: 5 5 How long have you lived there? 0 -1 years How many people live in the home? 2 H ome description Basement: Y es Any water damage in basement? N o Smokers in the home? N o Smokers outside the home? N o Air Conditioning? Y es Central Air? Y es Forced air heating? Y es Gas or electric? g as Fireplace? N o Wood burning stove? N o Do you vacuum the home? N o Air purification systems? N o Pillow and mattress dust-proof encasings? Y es Do you use a humidifier? N o Do you own any pets? N o Fabric softeners used? Y es Plants in the home? N o Is there carpeting in your bedroom? N o Do you have [id number] carpeting? N o What is the age of your mattress (years)? 4 What material(s) are used to manufacture your bedding and pillow? o ther What is the age of your pillow (years)? 4 What material are your bedding items made of? s ynthetic Do you sleep with quilts or blankets or a duvet? Y es What material? o ther T obacco Control (Standard) Tobacco use: N onsmoker * Medications: T akingmetFORMIN HCl 500 MG Tablet 1 tablet with a meal Orally Once a day Esomeprazole Magnesium 40 MG Capsule Delayed Release Oral Cyclobenzaprine HCl 10 MG Tablet Oral Singulair 10 MG Tablet 1 tablet Orally Once a day Breztri Aerosphere 160-9-4.8 MCG/ACT Aerosol Inhalation Albuterol Sulfate HFA 108 (90 Base) MCG/ACT Aerosol Solution 1 puff as needed Inhalation every 4 hrs Medication List reviewed and reconciled with the patientTaking metFORMIN HCl 500 MG Tablet 1 tablet with a meal Orally Once a day Taking Esomeprazole Magnesium 40 MG Capsule Delayed Release Oral Taking Cyclobenzaprine HCl 10 MG Tablet Oral Taking Singulair 10 MG Tablet 1 tablet Orally Once a day Taking Breztri Aerosphere 160-9-4.8 MCG/ACT Aerosol Inhalation Taking Albuterol Sulfate HFA 108 (90 Base) MCG/ACT Aerosol Solution 1 puff as needed Inhalation every 4 hrs Medication List reviewed and reconciled with the patient * Allergies: N .K.D.A.no[Allergies Verified] Objective: * Vitals: B P:156/88mm Hg, HR:84/min, Pulse Oximetry:99%, Ht: 61 in, Wt: 149.0 lbs, BMI:28.15Index. * Examination: G eneral examination: General appearance: p taishaasant, well-developed, well-nourished, female, i n no apparent distress, speaking in full sentences. HEENT: c onjunctiva are normal bilaterally, TMs without evidence of acute infection, turbinates 1+ swollen and pale inferiorly bilaterally, clear rhinorrhea is present, no polyps noted, no septal perforation, posterior oropharynx is clear without exudates, erythema on pharyngeal wall, no exudates, no tongue swelling, and uvula is midline. Oral cavity: n ormal, no lesions. Breasts : n ot performed. Heart: R RR, S1-S2, no murmurs, no rubs, no gallops. Lungs: c lear to auscultation in all lung lawler, no wheezes, no crackles, no rhonchi. Neurologic exam: u nremarkable. Skin: n ormal, no visible rash, dermatographism, urticaria, angioedema. Back: n ormal. Extremities: n ormal ROM, no clubbing, no cyanosis, no edema. Genitalia: n ot performed. Assessment: * Assessment: 1. H ypertrophy of nasal turbinates - J34.3 (Primary) 2 . C hronic rhinitis - J31.0 3 . S hortness of breath - R06.02 4 . C hronic sinusitis, unspecified - J32.9 5 . V itamin D deficiency, unspecified - E55.9 & #160; 6 . E levated blood-pressure reading, without diagnosis of hypertension - R03.0 ? Plan: * Treatment: 2. C hronic rhinitis Notes: See plan above 3. S hortness of breath Continue Breztri Aerosphere Aerosol, 160-9-4.8 MCG/ACT, Inhalation; C ontinue Albuterol Sulfate HFA Aerosol Solution, 108 (90 Base) MCG/ACT, 1 puff as needed, Inhalation, every 4 hrs. Notes: Cha reports history of shortness of breath and cough, exacerbated by illness. Reports she recently recovered form bronchitis. Cha recently established care with pulmonology, she is being seen at Dr. Hawkins's office. She is prescribed Breztri and albuterol. - Cha reports having a PFT completed a few weeks ago, records were requested again today. Due to cost deferred additional spirometry. - Continue per Pulmonology while awaiting records 4. C hronic sinusitis, unspecified L AB: S. PNEUMONIAE IGG AB, 23 SEROTYPES, S Notes: Cha reports frequent sinus infections occurring 3-4 times per year meeting JMF criteria for modified PIDD work-up. - Work-up showed inadequate protection to S. pneumo, she has since received Pneumovax. She will be due for repeat titers in 2-4 weeks, order sent to [facility]. - Recommend ENT evaluation as above 5. V itamin D deficiency, unspecified Notes: Normal with recent check 6. E levated blood-pressure reading, without diagnosis of hypertension Notes: BP elevated today without symptoms of urgency or emergency. Continue serial checks and follow-up with PCP * Procedure Codes: G 8427 DOC MEDS VERIFIED W/PT OR RE * Preventive Medicine: Counseling: D iet a s tolerated. E xercise C ontinue activity as usual, Consider ROMULO use PRN, prior to exercise as per the asthma action plan. M edication instruction: W atch for side effects of prescribed medications, Nasal steroid/antihistamine instruction: avoid septum. E ducation: G ENERAL EDUCATION: Our staff spent an additional 30 minutes in direct contact with the patient educating them on their current diagnoses and proper treatment and prevention of symptoms and the proper use of medications. P atient education material sent to portal? Y es C are goal follow up plan Above Normal BMI Follow-up E xercise promotion: strength training * Follow Up: 2 -3 Months (Reason: Evaluation and Management) * Billing Information: * Visit Code: 55040 Office Visit, Est Pt., Level 4. Modifiers: 25 * Procedure Codes: G8427 DOC MEDS VERIFIED W/PT OR RE. * Electronically co-signed by Shashi Krishna MD, FAAAAI on 07/27/2024 at 11:28 AM SMALL CRAFT OPERATOR Sign off status: Completed true * Provider: Leah Vasquez DNP CREW ATTENDANT-C Date: Generated for Kamla starks/Susie/eTransmitting on: 0 11/02/2024 11:30 AM CDT History and Physical Notes * HPI (History of Present Illness) Category Sub-Category Detail Notes Category Not es *Introduction I had the pleasure o f seeing Cha Spicer, a 58-year-old female who returns for laboratory review. She returns in consultation with her PCP, DIANA Malave. Her granddaughter is with her for today's visit. Cha endorses upper airway symptoms concerning for uncontrolled atopic disease. She reports previously seeing a different on site nurse, where she had testing completed that was all negative. She does not have pets in her home. She currently takes Singulair, Zyrtec and Flonase with some noted benefit. Last visit underwent SPT that was negative, ImmunoCaps ordered that also returned negative, total IgE was 4. Cha also reports frequent sinus infections occurring 3-4 times per year requiring antibiotics. She reports undergoing sinus surgery many years ago. No recent ENT evaluation. Modified PIDD work-up ordered that showed inadequate protection to S. pneumo, recently received Pneumovax, not yet due for repeat titers. Additionally, Cha reports history of occasional cough and shortness of breath. She is managed by pulmonology at [facility], unsure who her provider is. She uses Breztri daily. Cha feels Breztri is beneficial, however admits to recent bronchitis that has caused lingering cough. She reports having a PFT completed approximately three weeks ago, she is unsure on the results. No history of hospitalizations due to lower airway symptoms. Records not available for review. Today, she reports no fevers, chills, night sweats or other constitutional symptoms Examination Category Sub-Category Detail Notes Category Not es General examination HEENT: conjunctiva are normal bilaterally, TMs without evidence of acute infection, turbinates 1+ swollen and pale inferiorly bilaterally, clear rhinorrhea is present, no polyps noted, no septal perforation, posterior oropharynx is clear without exudates, erythema on pharyngeal wall, no exudates, no tongue swelling, and uvula is midline Heart: RRR, S1-S2, no murmu rs, no rubs, no gallops Lungs: clear to auscultatio n in all lung lawler, no wheezes, no crackles, no rhonchi Extremities: normal ROM, no clubb ing, no cyanosis, no edema General appearance: pleasant, well-devel oped, well-nourished, female, in no apparent distress, speaking in full sentences Skin: normal, no visible r wolfgang, dermatographism, urticaria, angioedema Neurologic exam: unremarkable Oral cavity: normal, no lesions Breasts : not performed Back: normal Genitalia: not performed
--- OUTSIDE RECORDS SUMMARY | 2024-11-02 11:31 | XMS_ITS ---
Author Organization [facility] Address [address] [place] [address] Care Team Providers Care Yarn Cleaner Name Role Phone Alejandra Sharif Primary Care Provider Tiffany Forrester [phone] REASON FOR VISIT [facility] follow-up Encounters Encounter Location Date Provider Diagnosis [facility] [address] [place] [address] 05/15/2024 Tiffany Vasquez Plan Of Treatment No Information Progress Notes * Cha SPICERDOB:1965 ( 59 yo F)Acc No.[id number]:05/15/2024 Progress Notes Patient: Cha NICHOLSON Provider: DONTE Phelps :1965 A ge:58 Y S ex:Female Date:05/15/2024 Address:[address] [place], [place] [id number] Pcp:JOVANI Figueredo Subjective: * Chief Complaints: * 1 . ARC follow-up. * Medical History: Objective: * Vitals: Assessment: Plan: * Treatment: * Billing Information: * Visit Code: * Procedure Codes: * Electronic signature of Tiffany Vasquez DNP, FNP-C on 11/02/2024 at 11:31 AM CDT Sign off status: Pending * Provider: DONTE Phelps Date: 1 Generated for Kamla starks/Susie/Geetaitting on: 0 11/02/2024 11:31 AM CDT
--- OUTSIDE RECORDS SUMMARY | 2024-11-02 11:31 | XMS_ITS | Clinical Summary ---
Author Organization [facility] Address [address] [place] [address] Care Team Providers Care Outdoor Education Teacher Name Role Phone Miscellaneous, Not In File Unavailable Unava Alejandra Dasilva NP Primary Care Provider [phone] Allergies Active Allergy Reactions Criticality Noted Date [...] Type Department Care Team Description 10/06/2024 Telephone [facility] [place] [address] [place] [address] Stefani Castro VALARIE 10/05/2024 2:45 PM CDT Office Visit [facility] [address] [place] [address] Kelly Babin NP Acute bacterial sinusitis (Primary Dx) 08/31/2024 12:00 PM MEDIA ASSOCIATE Office Visit [facility] [address] [place] [address] Kelly Babin NP Viral URI with cough (Primary Dx) from Last 3 Months Surgical History Surgery Date Site/Laterality Comments SECTION section OTHER SURGICAL HISTORY polyps: sinus surgery TUBAL LIGATION Bilateral tubal ligation OTHER SURGICAL HISTORY D&C Medical History Medical History Date Comments Endometritis endometriosis Hx Other Medical Headache, migra ine Hx Other Medical polyps Hx Other Medical lumbago 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 Hx Other Medical 02-ENT GERD (gastroesophageal reflux [...] on file Legal Sex Female 11:49 PM MEDIA ASSOCIATE Gender Identity Not on file Sexual Orientation [...] A/B, COVID-19 ANTIGEN Routine 08/31/2024 12:35 PM MEDIA ASSOCIATE Viral URI with cough from Last 3 Months Results * POC Influenza A/B, COVID-19 antigen (08/31/2024 12:35 PM MEDIA ASSOCIATE) Influenza A Ag, POC Negative Negative [facility] Influenza B Ag, POC Negative Negative [facility] COVID-19 Ag POC Presumptive Negative Presumptive Negative, Invalid [facility] Nasal 08/31/2024 12:3 5 PM MEDIA ASSOCIATE Kelly Babin NP POINT OF CARE TEST ORDERABLES Final Result [facility] [address] [place] [address], [facility] from Last 3 Months Insurance [employer] Advance Directives For more information, please contact: [phone] * Full Code (Latest Code Status on File) Date Activated Date Inactivated Comments 04/27/2020 9:34 PM 04/28/2020 4:30 PM Care Teams Outdoor Education Teacher Relationship Specialty Start Date End Date Alejandra Malave NP [address] [place] [id number] PCP - General Nurse Practitioner 02/23/24 Miscellaneous, Not In File 04/28/20
--- OUTSIDE RECORDS SUMMARY | 2024-11-02 11:31 | XMS_ITS | Clinical Summary ---
Author Organization [facility] [employer] Address [employer] [facility] [place] [address] Care Team Providers Care Sheeter Helper Name Role Phone Unavailable Primary Care Provider Unavailabl e Source Comments [facility],non-owned Affiliates and Associated Physician Practices is amultiple site organization consisting of ambulatory clinics and hospital sitesin [place], [place], [place] and [place]. This disclosure is being madepursuant to the Care Everywhere program and may not contain all information available regarding this patient. Last updated 18.[facility] Allergies Active Allergy Reactions Criticality Noted Date [...] fluticasone propionate (FLONASE) 50 MCG/ACT nasal spray [place] 1 spray into each nostril 2 times [...] topic Cha Spicer Personal/Family Self 1965 [address] [address]
--- OUTSIDE RECORDS SUMMARY | 2024-11-02 11:31 | XMS_ITS | Encounter Summary ---
Author Organization [facility] Address [address] [place] [address] Care Team Providers Care Boardmarker Name Role Phone Hari Zheng MD Primary Care Provider [phone] Reason for Visit * Reason Onset Date Comments Medication Refill 11/01/2024 Encounter Details Date Type Department Care Team (Late st Contact Info) Description 11/01/2024 Refill [email or web address] [place] [address] [place] [address] Yamilet Hoskins MD [email or web address] [address] HTN (hypertension), benign Social History Tobacco Use Types Packs/Day Years Used Date Smoking Tobacco: Never Smokeless Tobacco: Never Alcohol Use Standard Drinks/Week Comments No 0 (1 standard drink = 0.6 oz pur e alcohol) Comments No Sex and Gender Information Value Date Recorded Sex Assigned at Not on file Legal Sex Female 9:19 AM CDT Gender Identity Not on file Sexual Orientation Not on file documented as of this encounter Miscellaneous Notes * Telephone Encounter - Martita Grubbs - 11/01/2024 8:48 AM CDT Last refilled: 07/10/24 Quantity given: 90 Number of refills: 0 Last appointment: 07/10/24 Next appointment: 01/01/25 Last Labs: 07/10/24 documented in this encounter Plan of Treatment Upcoming Encounters Date Type Department Care Team (Late st Contact Info) Description 01/01/2025 2:00 PM CDT Office Visit [facility] [email or web address] [place] [address] [place] [address] Rehana Lu, ANP [address] [place] [address] documented as of this encounter Visit Diagnoses Diagnosis HTN (hypertension), benign Essential hypertension, benign documented in this encounter Care Teams Boardmarker Relationship Specialty Start Date End Date Hari hZeng MD [address] [place] [address] PCP - General Family Practice 03/23/23 documented as of this encounter
--- OUTSIDE RECORDS SUMMARY | 2024-11-02 11:31 | XMS_ITS | Clinical Summary ---
Author Organization [facility] [place] Address [address] [place] [address] Care Team Providers Care Oil Separator Name Role Phone Hari Zheng MD Primary Care Provider [phone] Allergies Active Allergy Reactions Criticality Noted Date Comments Codeine Other (See Comments),Rash Low 10/16/2016 Reaction: shaky, Shakes Penicillins Other (See Comments) Low 10/16/2016 shakes Sulfamethoxazole-Trimet hoprim Unknown 10/01/2023 Medications cetirizine (ZyrTEC) 10 mg tabletIndicatio ns:Seasonal allergic rhinitis, unspecified trigger Take 1 Tablet [...] Active esomeprazole (NexIUM) 40 mg Capsule, Delayed Release(E.C.)In dications:Gastr oesophageal reflux disease, unspecified whether esophagitis present Take 1 Capsule (40 mg) by mouth daily before breakfast. 90 Capsule 4 Active Breztri Aerosphere 160 mcg-9mcg-4.8mcg /actuation HFA aerosol inhaler 4 Active metFORMIN (FORTAMET) 500 mg Extended Release 24 hour tablet Take 500 mg by mouth daily with breakfast. Active montelukast (SINGULAIR) 10 mg tablet 4 Active PARoxetine HCl (PAXIL) 20 mg tablet 20 mg. 4 Active Xhance 93 mcg/actuation Aerosol Breath Activated 4 Active ipratropium bromide (ATROVENT) 21 mcg (0.03 %) Cuttyhunk, Non-Aerosol 4 Active hydroCHLOROthia zide (MICROZIDE) 12.5 mg capsuleIndicati ons:HTN (hypertension), benign Take 1 Capsule (12.5 mg) by mouth daily. 90 Capsule 5 Active hydroCHLOROthia zide (MICROZIDE) 12.5 mg capsuleIndicati ons:HTN (hypertension), benign Take 1 Capsule (12.5 mg) by mouth daily. 90 Capsule 4 11/02/19 25 Discontin ued(Reord er) Active Problems Problem Noted Date Diagnosed Date Bradycardia 01/19/2022 Low HDL (under 40) 01/19/2022 Acid reflux 08/13/2020 Vaginal atrophy 07/17/2020 Anxiety state 05/15/2020 Allergic rhinitis 09/09/2018 HTN (hypertension), benign 04/08/2018 Vaginitis and vulvovaginitis 09/21/2011 Encounters Date Type Department Care Team Description 11/01/2024 Refill [facility] [place] [address] [place] [address] Yamilet Hoskins MD HTN (hypertension), benign 10/24/2024 External Device Data [facility] ABSTRACTION Provider, [...] Comments Blood Pressure 128/78 07/10/2024 1:39 PM CALL CENTRE SUPERVISOR Pulse 85 07/10/2024 1:39 PM CALL CENTRE SUPERVISOR Temperature 37.1 C (98.8 F) 07/10/2024 1:39 PM CALL CENTRE SUPERVISOR Respiratory Rate 18 07/10/2024 1:39 PM CALL CENTRE SUPERVISOR Oxygen Saturation 98% 07/10/2024 1:39 PM CALL CENTRE SUPERVISOR Inhaled Oxygen Concentration - - Weight 73.5 kg (162 lb) 07/10/2024 1:39 PM CALL CENTRE SUPERVISOR Height 154.9 cm (5' 1 ) 07/10/2024 1:39 PM CALL CENTRE SUPERVISOR Body Mass Index 30.61 07/10/2024 1:39 PM CALL CENTRE SUPERVISOR Plan of Treatment Upcoming Encounters Date Type Department Care Team (Late st Contact Info) Description 01/01/2025 2:00 PM CDT Office Visit [facility] [place] [address] [place] [address] Rehana Lu, ANP [address] [place] [address] Health Maintenance Due Date Last Done Comments HPV/Cotest (21-29) 1985 HPV/Cotest (30-65) 1994 FIT-DNA Q 3 years 2009 Flex Sig/CT Colonography Q 5 years 2009 BREAST CANCER SCREENING 12/24/2018 12/25/19 18 (Previously completed) FIT/FOBT Q 1 year 09/24/2019 09/23/2018 CERVICAL CANCER SCREENING 09/23/2021 PAP SMEAR 09/23/2021 09/23/2018, 09/23/2018 COLORECTAL SCREENING [...] PAP W/O HPV Routine 09/23/2018 10:25 AM CALL CENTRE SUPERVISOR Screening for cervical cancer POC OCCULT BLOOD 1 CARD Routine 09/23/2018 10:07 AM CALL CENTRE SUPERVISOR Screening for condition from Last 3 Months or Most Recently Relevant to Health Maintenance Results * HEMOGLOBIN A1C (01/12/2022 7:14 AM CDT) HEMOGLOBIN A1C 5.6 <5.7 % of total Hgb [facility] Comment: For the purpose of screening for the presence of diabetes: <5.7% Consistent with the absence of diabetes 5.7-6.4% Consistent with increased risk for diabetes (prediabetes) > or =6.5% Consistent with diabetes This assay result is consistent with a decreased risk of diabetes. Currently, no consensus exists regarding use of hemoglobin A1c for diagnosis of diabetes in children. According to [place] Diabetes Association (ADA) guidelines, hemoglobin A1c <7.0% represents optimal control in non- diabetic patients. Different metrics may apply to specific patient populations. Standards of Medical Care in Diabetes(ADA). ESTIMATED AVERAGE GLUCOSE (MG/DL) 114 mg/dL [facility] ESTIMATED AVERAGE GLUCOSE (MMOL/L) 6.3 mmol/L [facility] Comment: Test Performed at: [facility] [address] [facility] [place] [address] Arnoldo Estrada D.O., MPH Blood 01/12/2022 7:14 AM CDT 01/13/2022 4:51 AM CDT Sarah BURCHP CHEMISTRY ORDERABLES F inal Result [facility] [phone] * CERV/VAG CYTO SCREEN PAP W/O HPV (09/23/2018 10:25 AM CALL CENTRE SUPERVISOR) DIAGNOSIS (PAP): Comment [facility] Comment:UNSATISFACTORY FOR E VALUATION. Package Maker Recommendation Comment [facility] Comment:Suggest follow up as clinically appropriate. ADEQUACY: Comment [facility] Comment: Specimen processed and examined but unsatisfactory for evaluation of epithelial abnormality because of insufficient cellularity. CLINICIAN PROVIDED ICD10 Comment [facility] Comment:Z12.4 PERFORMED BY (PAP): Comment [facility] Comment:Laurel Johnson, Cytot echnologist (ASCP) QC REVIEWED BY: Comment [facility] Comment:Sophia Padilla Health Advisor (ASCP) RESULT (PAP): . [facility] SEE NOTE (PAP): Comment [facility] Comment: The Pap smear is a screening test designed to aid in the detection of premalignant and malignant conditions of the uterine cervix. It is not a diagnostic procedure and should not be used as the sole means of detecting cervical cancer. Both false-positive and false-negative reports do occur. CYTOLOGY PALLIATIVE CARE NURSE METHODOLOGY CANCELED [facility] Comment: The Thin Prep(R) Foxing Painter was unable to read this specimen. Therefore a manual review was performed. Result canceled by the ancillary Genital SWAB OF ENDOCERVIX / Unknown 09/23/2018 10:25 AM CALL CENTRE SUPERVISOR 09/23/2018 Narrative [facility] - 09/28/2018 12:36 PM CALL CENTRE SUPERVISOR Performed at: [address] [place] [id number] Farm Mechanic Apprentice: Lilian Avina MD, Phone: [phone] Specimen Comment: No. of containers..01 ThinPrep Vial us Francheska Lewis NP PATHOLOGY/CYTOLOGY CASSIE ESCALERA Edited Result - Final [facility] [phone] * POC OCCULT BLOOD 1 CARD (09/23/2018 10:07 AM CALL CENTRE SUPERVISOR) OCCULT BLOOD 1 CARD POC Negative Negative [facility] [place] QC Pass Pass [facility] CARD [address] NUMBER POC [id number] [facility] [place] CARD EXPIRATION DATE POC 09/2019 [facility] [place] DEVELOPER [address] NUMBER POC [id number] [facility] [place] DEV[place] EXPIRATION DATE POC 12/2021 [facility] Stool STOOL SPECIMEN / Unknown 09/23/2018 10:07 AM CALL CENTRE SUPERVISOR us Francheska Lewis NP POINT OF CARE TESTING F inal Result Performing Organization Address City/[facility]/ZIP Co de Phone Number [facility] CLIA# [id number] [address] [place] [address] from Last 3 Months or Most Recently Relevant to Health Maintenance Insurance [employer] OPEN ACCESS * Guarantor: [employer] Account Type Relation to Patient Date of Phone Billing Address Corporate Employer ATTN: ARLET SCHUSTER [address] [address] Care Teams Oil Separator Relationship Specialty Start Date End Date Hari Zheng MD [address] [place] [address] PCP - General Family Practice 03/23/23
--- OUTSIDE RECORDS SUMMARY | 2024-11-02 11:31 | XMS_ITS | Patient Health Record ---
Author Organization [facility] Address [address] [place] [address] Care Team Providers Care Forester Aide Name Role Phone Alejandra Sharif Primary Care Provider Yola Tiffany Kwan Unavailable [phone] Shashi Krishna Unavailable [phone] Britton Bhagat Unavailable [phone] Amina Weaver Unavailable [phone] Allergies No Known Allergies Results Component Value Reference Range Notes RESPIRATORY ALLERGY PROFILE REGION VIII: [place], [place] Reviewed date:04/27/2024 07:37:58 AM Interpretation:Normal Performing Lab:MARYANN, [facility], [address], [place], [address] Mathew Cervantes MD Notes/Report: NON-FASTING; NON-FASTING; NON-FASTING FASTING:NO FASTING: NO DERMATOPHAGOIDES PTERONYSSINUS (D1) IGE <0.10 CLASS 0 DERMATOPHAGOIDES FARINAE (D2) IGE <0.10 CLASS 0 PENICILLIUM NOTATUM (M1) IGE <0.10 CLASS 0 CLADOSPORIUM HERBARUM (M2) IGE <0.10 CLASS 0 ASPERGILLUS FUMIGATUS (M3) IGE <0.10 CLASS 0 ALTERNARIA ALTERNATA (M6) IGE <0.10 CLASS 0 COCKROACH (I6) IGE <0.10 CLASS 0 MAPLE (BOX ELDER) (T1) IGE <0.10 CLASS 0 MOUNTAIN CEDAR (T6) IGE <0.10 CLASS 0 WALNUT TREE (T10) IGE <0.10 CLASS 0 SYCAMORE (T11) IGE <0.10 CLASS 0 COTTONWOOD (T14) IGE <0.10 CLASS 0 WHITE KELECHI (T15) IGE <0.10 CLASS 0 OAK (T7) IGE <0.10 CLASS 0 ELM (T8) IGE <0.10 CLASS 0 HICKORY/PECAN TREE (T22) IGE <0.10 CLASS 0 WHITE MULBERRY (T70) IGE <0.10 CLASS 0 BERMUDA GRASS (G2) IGE <0.10 CLASS 0 NITA GRASS (G6) IGE <0.10 CLASS 0 COMMON RAGWEED (SHORT) (W1) IGE <0.10 CLASS 0 ROUGH PIGWEED (W14) IGE <0.10 CLASS 0 GUINEAN THISTLE (W11) IGE <0.10 CLASS 0 ROUGH SANDS ELDER (W16) IGE <0.10 CLASS 0 MOUSE URINE PROTEINS (E72) IGE <0.10 CLASS 0 IMMUNOGLOBULIN E 4 <GE=412 kU/L CAT DANDER (E1) IGE <0.10 CLASS 0 DOG DANDER (E5) IGE <0.10 CLASS 0 VITAMIN D, 25-OH, TOTAL, [place] Reviewed date:05/01/2024 07:45:50 AM Interpretation:Normal Performing Lab:Emilia, [facility] [address] [place] [address], [address], [place], [address] Darrion Keller PhD,[facility] Notes/Report: NON-FASTING; NON-FASTING FASTING:NO FASTING: NO VITAMIN D, 25-OH, TOTAL 37.7 >29.9 ng/mL This test was developed and its analytical performance characteristics have been determined by [facility]. It has not been cleared or approved by the U.S. Food and Drug Administration. This assay has been validated pursuant to the CLIA regulations and is used for clinical purposes. Vitamin D, 25-Hydroxy reports concentrations of two common forms, 25-OHD2 and 25-OHD3. 25-OHD3 indicates both endogenous production and supplementation. 25-OHD2 is an indicator of exogenous sources, such as diet or supplementation. Therapy is based on measurement of Total 25-OHD, with levels <20 ng/mL indicative of Vitamin D deficiency, while levels between 20 ng/mL and 30 ng/mL suggest insufficiency. Optimal levels are >=30 ng/mL. Vitamin D, 25-Hydroxy reports concentrations of two common forms, 25-OHD2 and 25-OHD3. 25-OHD3 indicates both endogenous production and supplementation. 25-OHD2 is an indicator of exogenous sources, such as diet or supplementation. Therapy is based on measurement of Total 25-OHD, with levels <20 ng/mL indicative of Vitamin D deficiency, while levels between 20 ng/mL and 30 ng/mL suggest insufficiency. Optimal levels are > or = 30 ng/mL. VITAMIN D, 25-OH, D3 36.2 This test was developed and its analytical performance characteristics have been determined by [facility]. It has not been cleared or approved by the FDA. This assay has been validated pursuant to the CLIA regulations and is used for clinical purposes. VITAMIN D, 25-OH, D2 1.4 This test was developed and its analytical performance characteristics have been determined by [facility]. It has not been cleared or approved by the FDA. This assay has been validated pursuant to the CLIA regulations and is used for clinical purposes. IMMUNOGLOBULINS G/A/M Reviewed date:04/27/2024 07:37:33 AM Interpretation:Normal Performing Lab:MARYANN, [facility], [address] [place], [address] Mathew Cervantes MD Notes/Report: NON-FASTING; NON-FASTING; NON-FASTING FASTING:NO FASTING: NO IMMUNOGLOBULIN A 194 47-310 mg/dL IMMUNOGLOBULIN G 431 059-4260 mg/dL IMMUNOGLOBULIN M 108 50-300 mg/dL S. PNEUMONIAE IGG AB, 23 SER OTYPES, S Reviewed date:05/01/2024 01:12:51 PM Interpretation:Abnormal Performing Lab:MY, [facility], [address] [place], [place], [address] Salina Mak M.D. Ph.D. Notes/Report: NON-FASTING; NON-FASTING FASTING:NO FASTING: NO INTERPRETATION Evaluation of the immune response following pneumococcal vaccination can be assessed by measuring serotype-specific Streptococcus pneumonia IgG antibodies. Either of the following conditions is consistent with a normal response to Streptococcus pneumonia vaccination: 1. When comparing pre and post-vaccination samples, antibody concentrations increased by at least 2-fold for either >50% of serotypes in children <6 years of age or >70% of serotypes for individuals >6 years of age. 2. In either a pre- or post-vaccination sample, antibody concentrations >=1.0 mcg/mL for either >50% of serotypes for children <6 years of age or >70% of serotypes for individuals >6 years of age. Results >=1.0 mcg/mL or those showing a >=2-fold change are consistent with an immune response, but are not necessarily sufficient to provide protection against infection. ADDITIONAL INFORMATION This test was developed and its performance characteristics determined by [facility] in a manner consistent with CLIA requirements. This test has not been cleared or approved by the U.S. Food and Drug Administration. SEROTYPE 1 (1) 0.5 >=1.0 mcg/mL SEROTYPE 2 (2) 0.1 >=1.0 mcg/mL SEROTYPE 3 (3) 0.1 >=1.0 mcg/mL SEROTYPE 4 (4) 0.1 >=1.0 mcg/mL SEROTYPE 5 (5) 0.1 >=1.0 mcg/mL SEROTYPE 8 (8) 0.2 >=1.0 mcg/mL SEROTYPE 9N (9) 0.3 >=1.0 mcg/mL SEROTYPE 12F (12) <0.1 >=1.0 mcg/mL SEROTYPE 14 (14) 1.1 >=1.0 mcg/mL SEROTYPE 17F (17) 0.1 >=1.0 mcg/mL SEROTYPE 19F (19) 0.9 >=1.0 mcg/mL SEROTYPE 20 (20) 0.5 >=1.0 mcg/mL SEROTYPE 22F (22) 0.2 >=1.0 mcg/mL SEROTYPE 23F (23) 0.2 >=1.0 mcg/mL SEROTYPE 6B (26) 0.5 >=1.0 mcg/mL SEROTYPE 10A (34) 0.3 >=1.0 mcg/mL SEROTYPE 11A (43) 3.7 >=1.0 mcg/mL SEROTYPE 7F (51) 0.3 >=1.0 mcg/mL SEROTYPE 15B (54) 0.3 >=1.0 mcg/mL SEROTYPE 18C (56) 0.1 >=1.0 mcg/mL SEROTYPE 19A (57) 2.7 >=1.0 mcg/mL SEROTYPE 9V (68) 0.2 >=1.0 mcg/mL SEROTYPE 33F (70) 0.7 >=1.0 mcg/mL H. INFLUENZAE TYPE B AB Reviewed date:04/26/2024 07:49:34 AM Interpretation:Normal Performing Lab:[employer],, [address] [place], [address] Balbina Morataya MD,PhD,AMI Notes/Report: NON-FASTING; NON-FASTING FASTING:NO FASTING: NO HAEMOPHILUS INFLUENZA TYPE B ANTIBODY (IGG) 7.75 REFERENCE RANGE: > or = 1.00 mcg/mL INTERPRETIVE CRITERIA: <0.15 mcg/mL Nonprotective Antibody Level 0.15 - 0.99 mcg/mL Indeterminate for protective antibody > or = 1.00 mcg/mL Protective Antibody Level IgG antibody to polyribosylribitol phosphate (PRP), the capsular polysaccharide of Haemophilus influenzae type b, is measured in micrograms/mL (mcg/mL), based on correlations with a reference Michael radioimmunoprecipitation assay (KOLBY). The exact level of antibody needed for protection from infection has not been clarified; values ranging from 0.15 mcg/mL to 1.00 mcg/mL have been reported. A four-fold increase in the PRP IgG antibody level between pre-vaccination and post-vaccination sera is considered evidence of effective immunization. TETANUS ANTITOXOID Reviewed date:04/26/2024 07:49:05 AM Interpretation:Normal Performing Lab:[employer] [facility],, [address] [place], [address] Balbina Morataya MD,PhD,MAI Notes/Report: NON-FASTING; NON-FASTING FASTING:NO FASTING: NO TETANUS ANTITOXOID 1.39 REFERENCE RANGE: 0.10 IU/mL or greater Antibody levels > or = 0.10 IU/mL are considered protective. However, tetanus can still occur in some individuals with such antibody levels. These results should not be used to determine the necessity to administer antitoxin when clinically indicated. This test was developed and its analytical performance characteristics have been determined by [facility]. It has not been cleared or approved by FDA. This assay has been validated pursuant to the CLIA regulations and is used for clinical purposes. INTERPRETATION Reviewed date:04/27/2024 07:37:13 AM Interpretation:Interpretation Performing Lab:MARYANN, [facility], [address] [facility], [place], [address] Mathew Cervantes MD Notes/Report: NON-FASTING; NON-FASTING; NON-FASTING FASTING:NO FASTING: NO INTERPRETATION Specific Level of Allergen IGE Class kU/L Specific IGE Antibody ----- --------- 0 <0.10 Absent/Undetectable 0/1 0.10-0.34 Very Low Level 1 0.35-0.69 Low Level 2 0.70-3.49 Moderate Level 3 3.50-17.4 High Level 4 17.5-49.9 Very High Level 5 50-100 Very High Level 6 >100 Very High Level The clinical relevance of allergen results of 0.10-0.34 kU/L are undetermined and intended for specialist use. Allergens denoted with a include results using one or more analyte specific reagents. In those cases, the test was developed and its analytical performance characteristics have been determined by [facility]. It has not been cleared or approved by the U.S. Food and Drug Administration. This assay has been validated pursuant to the CLIA regulations and is used for clinical purposes. DIPHTHERIA ANTITOXOID Reviewed date:04/27/2024 07:37:06 AM Interpretation:Normal Performing Lab:[facility],, [address] [place], [address] Balbina Morataya MD,PhD,MAI Notes/Report: NON-FASTING; NON-FASTING; NON-FASTING FASTING:NO FASTING: NO DIPHTHERIA ANTITOXOID 0.23 REFERENCE RANGE: 0.10 IU/mL or greater Interpretive Criteria <0.10 IU/mL Nonprotective Antibody Level > Or = 0.10 IU/mL Protective Antibody Level Antibody levels > or = 0.10 IU/mL are considered protective. After a primary series of three properly spaced diphtheria toxoid doses in adults or four doses in infants, a protective level of antitoxin (defined as > or = 0.10 IU of antitoxin/mL) is reached in more than 95% of immunized persons. This test was developed and its analytical performance characteristics have been determined by [facility]. It has not been cleared or approved by FDA. This assay has been validated pursuant to the CLIA regulations and is used for clinical purposes. Reason For Referral No Information Medications Medication SIG (Take, Route, Frequency, Duration) Notes Start Date End Date Status metFORMIN HCl 500 MG 1 tablet with a nat l Orally Once a day Active Breztri Aerosphere 160-9-4.8 MCG/ACT Inhalation Active Singulair 10 MG 1 tablet Orally Once a day Active Albuterol Sulfate HFA 108 (9 0 Base) MCG/ACT 1 puff as needed Inhalation every 4 hrs Active Esomeprazole Magnesium 40 MG Oral for 90 Days Active Cyclobenzaprine HCl 10 MG Oral for 10 Days Active Immunizations Vaccine Route Administration Date Status Comme nts Pneumovax 23 IM Intramuscular 05/03/2024 Administered Social History Tobacco Use: Social History Observation Description Date Details (start date - stop date) Never Smoker NA - NA Tobacco Control (Standard) Question Answer Notes Tobacco use: Nonsmoker Problems Problem Type SNOMED Code ICD Code Onset Dates Problem Status W/U Status Risk Notes Problem Vitamin D deficiency (28330407) Vitamin D deficiency, unspecified (E55.9) Active confirmed Problem Chronic rhinitis (25698725) Chronic rhinitis (J31.0) Active confirmed Problem Chronic sinusitis (71870684) Chronic sinusitis, unspecified (J32.9) Active confirmed Problem Hypertrophy of nasal turbinates (30054123) Hypertrophy of nasal turbinates (J34.3) Active confirmed Problem Chronic sinusitis (13468040) Other chronic sinusitis (J32.8) Active confirmed Vital Signs Oximetry 99 % 05/16/2024 Blood pressure diastolic 88 mm Hg 05/16/2024 Height 61 in 05/16/2024 Blood pressure systolic 156 mm Hg 05/16/2024 Weight 149.0 lbs 05/16/2024 BMI 28.15 kg/m2 05/16/2024 Encounters Encounter Location Date Provider Diagnosis [facility] [address] [facility] [address] [place] [address] 04/17/2024 Tiffany Vasquez Hypertrophy of nasal turbinates J34.3 ; Chronic rhinitis J31.0 ; Shortness of breath R06.02 ; Chronic sinusitis, unspecified J32.9 ; Vitamin D deficiency, unspecified E55.9 and Elevated blood-pressure reading, without diagnosis of hypertension R03.[address] [address] 05/03/2024 Shashi Tomi Encounter for immunization Z23 ; Encounter for antibody response examination Z01.84 and Other chronic sinusitis J32.[address] [address] 05/16/2024 Tiffany Vasquez Hypertrophy of nasal turbinates J34.3 ; Chronic rhinitis J31.0 ; Shortness of breath R06.02 ; Chronic sinusitis, unspecified J32.9 ; Vitamin D deficiency, unspecified E55.9 and Elevated blood-pressure reading, without diagnosis of hypertension R03.[address] [address] 04/17/2024 Britton Bhagat [facility] [address] [place] [address] 04/23/2024 Tiffany Vasquez [address] [address] 04/27/2024 Tiffany Vasquez [address] [address] 05/01/2024 Tiffany Vasquez [address] [address] 05/09/2024 Tiffany Vasquez Assessments Encounter Date Diagnosis (ICD Code) Assessment Notes Treatment Notes Treatment Clinical Notes Section Notes 04/17/2024 Chronic rhinitis (ICD-10 - J31.0) See plan above 04/17/2024 Hypertrophy of nasal turbinates (ICD-10 - J34.3) Cha presents with upper airway symptoms concerning for uncontrolled atopic disease. Prior skin testing performed that returned all negative. - Skin testing performed to aeroallergens that was all negative, appropriate controls. Discussed intradermal testing vs ImmunoCaps. Order for ImmunoCaps sent to [facility]. - Return in four weeks for further evaluation and management and laboratory review 05/03/2024 Encounter for immunization (ICD-10 - Z23) 05/03/2024 Encounter for antibody response examination (ICD-10 - Z01.84) 05/16/2024 Chronic rhinitis (ICD-10 - J31.0) See plan above 05/16/2024 Hypertrophy of nasal turbinates (ICD-10 - [...] Provided list of local ENT providers 05/16/2024 Shortness of breath (ICD-10 - R06.02) [...] - Continue per Pulmonology while awaiting records 05/03/2024 Other chronic sinusitis (ICD-10 - J32.8) 04/17/2024 Shortness of breath (ICD-10 - R06.02) Cha reports history of shortness of breath and cough, exacerbated by illness. Reports she recently recovered form bronchitis. Cha recently established care with pulmonology, she is being seen at Dr. Hawkins's office. She is prescribed Breztri and albuterol. - Cha reports having a PFT completed three weeks ago, will request records. - Continue per Pulmonology while awaiting records 04/17/2024 Chronic sinusitis, unspecified (ICD-10 - J32.9) Cha reports frequent sinus infections occurring 3-4 times per year meeting JMF criteria for modified PIDD work-up. - Will plan on boosters/Vitamin D supplementation based on results 05/16/2024 Chronic sinusitis, unspecified (ICD-10 - J32.9) Cha reports frequent sinus infections occurring 3-4 times per year meeting JMF criteria for modified PIDD work-up. - Work-up showed inadequate protection to S. pneumo, she has since received Pneumovax. She will be due for repeat titers in 2-4 weeks, order sent to [facility]. - Recommend ENT evaluation as above 05/16/2024 Vitamin D deficiency, unspecified (ICD-10 - E55.9) Normal with recent check 04/17/2024 Vitamin D deficiency, unspecified (ICD-10 - E55.9) Rule out for immune work-up as above 04/17/2024 Elevated blood-pressure reading, without diagnosis of hypertension (ICD-10 - R03.0) BP elevated today without symptoms of urgency or emergency. Continue serial checks and follow-up with PCP 05/16/2024 Elevated blood-pressure reading, without diagnosis of hypertension (ICD-10 - R03.0) BP elevated today without symptoms of urgency or emergency. Continue serial checks and follow-up with PCP 04/17/2024 Other 05/16/2024 Other Plan Of Treatment Pending Test Test Name Order Date TETANUS ANTITOXOID ANTIBODY (EIA) 2023 DIPHTHERIA ANTITOXOID ANTIBODY 4 HAEMOPHILUS INFLUENZAE B ANTIBODY, IGG 0 04/17/2024 S. PNEUMONIAE IGG AB, 23 SEROTYPES, S Insurance Providers Payer Name Payer Address Payer Phone Subscriber Number Group Number Insured Name Patient Relationship to Insured Coverage Start Date Coverage End Date [place] [facility] P[address]te[id number] [facility] [place] [phone] [id number] Cha Spicer Self - patient is the insured 2
--- OUTSIDE RECORDS SUMMARY | 2024-11-02 11:31 | XMS_ITS | Referral Summary ---
Author Organization [facility] Address [address] [place] [address] Care Team Providers Care Child Advocate Name Role Phone Miscellaneous, Not In File Unavailable Unava Alejandra Dasilva NP Primary Care Provider [phone] Encounters Date Type Department Care Team Description 10/06/2024 Telephone [facility] [address] [place] [address] Stefani Castro MA 10/05/2024 2:45 PM CDT Office Visit [facility] [address] [place] [address] Kelly Babin NP Acute bacterial sinusitis (Primary Dx) 08/31/2024 12:00 PM TITLE ASSISTANT Office Visit [facility] [address] [place] [address] Kelly Babin NP Viral URI with cough [...] on file Legal Sex Female 11:49 PM TITLE ASSISTANT Gender Identity Not on file Sexual Orientation [...] A/B, COVID-19 ANTIGEN Routine 08/31/2024 12:35 PM TITLE ASSISTANT Viral URI with cough from Last 3 Months Results * POC Influenza A/B, COVID-19 antigen (08/31/2024 12:35 PM TITLE ASSISTANT) Influenza A Ag, POC Negative Negative [facility] Influenza B Ag, POC Negative Negative [facility] COVID-19 Ag POC Presumptive Negative Presumptive Negative, Invalid [facility] Nasal 08/31/2024 12:3 5 PM TITLE ASSISTANT us Kelly Babin NEUROLOGY TECHNICIAN POINT OF CARE TEST ORDERABLES Final Result [facility] [address] [place] [address], [facility] from Last 3 Months Insurance [facility] Advance Directives For more information, please contact: [phone] * Full Code (Latest Code Status on File) Date Activated Date Inactivated Comments 04/27/2020 9:34 PM 04/28/2020 4:30 PM Care Teams Child Advocate Relationship Specialty Start Date End Date Alejandra Malave NP [address] [place] [id number] PCP - General Nurse Practitioner 02/23/24 Miscellaneous, Not In File 04/28/20
--- OUTSIDE RECORDS SUMMARY | 2024-11-02 11:31 | XMS_ITS | Clinical Summary ---
Author Organization [facility] Address [address] [facility], [address] [address] Phone Care Team Providers Care Vp Cardiovascular Service Line Name Role Phone Francheska Lewis APRN, BROADCAST OPERATIONS TECHNICIAN Primary Care Provide r Allergies Active Allergy [...] 10/16/2016 Menopause 10/16/2016 Endometriosis 10/16/2016 Overview (10/16/2016): OPERATIONS SUPPORT PROFESSIONALS: [facility] Migraine 10/16/2016 Sinus infection 10/16/2016 Overview (10/16/2016): Hx of sinus surgery Depression 10/16/2016 S/P tonsillectomy 10/16/2016 Immunizations Immunization Administration Dates Next Due DTAP VACCINE 10/17/2013 Family History Medical History Relation Name Comments Other-comment Brother Accidental ove rdose. Other-comment Mother [place] Relation Name Status Comments Brother Father Health problems unknown. Mother [place] Social History Tobacco Use Types Packs/Day Years [...] Comments Blood Pressure 126/73 05/28/2019 9:30 AM SITE DIRECTOR Pulse 57 05/28/2019 9:30 AM SITE DIRECTOR Temperature 37.2 C (98.9 F) 05/28/2019 7:08 AM SITE DIRECTOR Respiratory Rate 16 05/28/2019 9:30 AM SITE DIRECTOR Oxygen Saturation 99% 05/28/2019 7:08 AM SITE DIRECTOR Inhaled Oxygen Concentration - - Weight 63.5 kg (140 lb) 06/19/2019 10:49 AM SITE DIRECTOR Height 154.9 cm (5' 1 ) 05/28/2019 7:08 AM SITE DIRECTOR Body Mass Index 26.45 05/28/2019 7:08 AM SITE DIRECTOR Plan of Treatment Health Maintenance Due Date [...] to complete this topic Insurance Care Teams Vp Cardiovascular Service Line Relationship Specialty Start Date End Date Francheska Lewis, PRODUCTION EXPERT, BROADCAST OPERATIONS TECHNICIAN PCP - General Advanced Practice Nurse 05/28/19
--- OUTSIDE RECORDS SUMMARY | 2024-11-02 11:32 | XMS_ITS | Data Portability ---
Author Organization [facility] Address [address] [place] [address] [address] Care Team Providers Care Audio Experience Expert Name Role Phone CASSIUS THOMAS Primary Care Provider Assessment Encounter Date Assessment Date Assessment LastModified by Organization Details LastModified Time 09/08/2021 09/08/2021 Annual gynecological exam performed. Patient will come back in a year unless there are new symptoms. [email or web address] Not available 08/08/2021 13:40:17 03/25/2023 03/25/2023 Annual gynecological exam performed. Patient will come back in a year unless there are new symptoms. [email or web address] Not available 03/25/2023 16:23:12 Plan of Treatment Reminders Order Date Submit Date Provider Last Modified By Organization Details Last Modified Time Details Appointments None recorded. Lab None recorded. Referral None recorded. Procedures None recorded. Surgeries None recorded. Imaging MAMMO, screening, digital, bilateral 2022 023 [email or web address] Not available 4 10:50:11 DEXA 2021 022 [email or web address] [facility], [address], [facility], [place], [address], 16:11:08 Medication Orders paroxetine 20 mg tablet 2023 024 [facility], [facility] [place], [address], [place], [address], 10/23/202 4 00:09:07 Patient TargetsNo targets recorded. Patient InstructionsNo instructions recorded. Reason for Referral None Reported. Problems Name Problem SNOMED Code Status Onset Date Resolution Date Notes Provider Name and Address Organization Details Recorded Time Speciali lonid medical examinat ion Completed 201308/13/2020 Gynecolo gical Examinat ion;Abdon rded Elsewher e: No Locat ion: [facility] S ource: EHR Jetting Machine Operator sobia: N Practi ce ID: [id number] [place] lable Time: 02:30:00 PM Tammie Reardon [facility] 13:56:15 Adult health examinat ion Completed 201308/13/2020 ROUTINE MEDICAL EXAM;Rec orded Elsewher e: No Locat ion: [facility] S ource: EHR Jetting Machine Operator sobia: N Practi ce ID: [id number] [place] lable Time: 02:30:00 PM Tammie Reardon [facility] 13:56:[address] Concept Completed 201408/13/2020 Encntr for general adult medical exam w/o abnormal findings ;Recorde d Elsewher e: No Locat ion: [facility] S ource: EHR Jetting Machine Operator sobia: N Practi ce ID: [id number] [place] lable Time: 03:45:00 PM Tammie Reardon [facility] 13:56:20 Screenin g for malignan t neoplasm of cervix Completed 201008/13/2020 Screenin g for malignan t neoplasm s of the cervix;R ecorded Elsewher e: No Locat ion: [facility] S ource: EHR Jetting Machine Operator sobia: N Practi ce ID: [id number] [place] lable Time: 03:00:00 PM Tammie Reardon [facility] 13:56:28 Urinary tract infectio us disease [id number] Completed 201108/13/2020 Urinary Tract Infectio n;Record ed Elsewher e: No Locat ion: [facility]i [facility] S ource: EHR Jetting Machine Operator sobia: N Practi ce ID: [id number] [place] lable Time: 10:30:00 AM Tammie Reardon eladia, [facility] 1 13:56:11 Vaginiti s and vulvovag initis Completed 201108/13/2020 Vaginiti s;Record ed Elsewher e: No Locat ion: [facility] S ource: EHR Jetting Machine Operator sobia: N Practi ce ID: [id number] [place] lable Time: 10:30:00 AM Tammie Reardon eladia, [facility] 13:56:07 Emotiona l state finding Completed 201408/13/2020 Anxiety depressi on;Recor ded Elsewher e: No Locat ion: [facility] Practi ce ID: [id number] [place] lable Time: 03:45:00 PM Tammie Reardon eladia, [facility] 13:56:[address] Concept Completed 201408/13/2020 Encntr for tree worker exam (general ) (routine ) w/o abn findings ;Recorde d Elsewher e: No Locat ion: [facility] N Practi ce ID: [id number] [place] lable Time: 03:45:00 PM Tammie Reardon [place], [facility] 13:56:17 Screenin g for malignan t neoplasm of rectum Completed 201408/13/2020 Encounte r for screenin g for malignan t neoplasm of rectum;R ecorded Elsewher e: No Locat ion: [facility] S ource: EHR Jetting Machine Operator sobia: N Practi ce ID: 0001 [place] lable Time: 03:45:00 PM Tammie Reardon eladia [facility] 13:56:25 Malaise and fatigue [id number] Completed 201008/13/2020 Fatigue And Malaise; Practice ID: 0001 Tammie Reardon [facility], [facility] 13:56:31 Hyperten sive disorder 58090414 Completed 202004/24/2021 Jessicachandana Goncalves [facility], [facility] 14:02:03 Endometr itis 18937493 Completed 202004/24/2021 Jessica Goncalves [facility], [facility] 14:02:01 Acid reflux 107928100 Completed 202004/24/2021 Jessica Goncalves [facility] 14:01:58 Problem Notes None recorded. Procedures Surgical History Date Name Laterality Status Provider Name and Address Organization Details Recorded Time 09/28/19 21 Date of Last Mammogram completed Jessicachandana Goncalves [facility] 08/26/2021 15:06:04 08/13/19 21 Date of Last Pap Smear completed Cynthia Castillo [facility] 08/08/2021 13:45:03 08/27/19 15 colonoscopy completed Nancy Steele [facility]- [address], [place], [address], [facility] 09/08/2021 09:53:19 07/26/19 06 Dilation and Curettage completed Molly Cortes [facility] 05/16/2024 15:54:50 07/26/19 06 Dilation and Curettage completed Tammie Reardon [facility] 08/13/2020 14:04:54 03/17/19 95 section completed Tammie Reardon [facility] 08/13/2020 14:05:11 08/17/18 94 section completed Tammie Reardon [facility] 08/13/2020 14:05:06 laparoscopic excision of pelvic endometriosis completed Krystal Campos [facility] 01/15/2020 13:58:51 Tubal Ligation completed Krystal Campos [facility] 02/19/2020 09:48:53 Tubal Ligation completed Molly Cortes [facility] 05/16/2024 15:54:50 Imaging Results None recorded. Procedure Notes None recorded. Medical Equipment None Reported. Allergies Allergen ID Allergen Name Allergen Category Reaction Reaction Severity Criticality Documentation Date Start Date Code Code System Note Provider Name and Address Organization Details Recorded Time 1093 Bactrim medicatio n Not available Not available Not available 01/17/2020 03119 9 RxNorm edouard [facility]emma [facility] 10:57:14 1469 codeine medicatio n Not available Not available Not available 02/19/2020 2670 RxNorm Krystal montilla, [facility] 0 09:47:15 42934 Product containin g penicilli n (product) medicatio n Not available Not available Not available 09/21/2020 41412 8001 [facility]ED [facility] 11:50:37 Medications Name Sig Start Date Stop Date Status Note LastModified by Organization Details LastModified Time cyclobenz aprine 10 mg tablet TAKE 1 TABLET BY MOUTH ONCE DAILY AT BEDTIME FOR 8-[address]. [address] OR OPERATE [employer] WHILE TAKING THIS MEDICATI ON. active Not Available Not Available No t Available promethaz ine-DM 6.25 mg-15 mg/5 mL oral syrup TAKE 5 ML BY MOUTH EVERY 8 HOURS NEEDED 05/16 completed Not Available Not Available Not Available fluticaso ne 250 mcg-salme terol 50 mcg/dose blistr powdr for inhalatio n active Not Available Not Available Not Available doxycycli ne hyclate 100 mg capsule 08/13 completed Not Available Not Available Not Available paroxetin e 10 mg tablet TAKE ONE (1) TABLET EVERY DAY BY ORAL ROUTE. 11/02 /2023 completed Not Available Not Available Not Available clindamyc in HCl 300 mg capsule active Not Available Not Available Not Available azithromy jennifer 250 mg tablet TAKE 2 TABLETS BY MOUTH ON DAY 1, AND THEN TAKE 1 TABLET BY MOUTH ONCE A DAY ON DAY 2 THROUGH DAY 5 05/16 completed Not Available Not Available Not Available benzonata te 200 mg capsule active Not Available Not Available Not Available citalopra m 10 mg tablet Take 1 tablet every day by oral route for 30 days. 04/29 completed howie shaikh, sweating Not Available Not Available Not Available sucralfat e 1 gram tablet active Not Available Not Available Not Available Diflucan 150 mg tablet take 1 tablet (150MG) by oral route once 02/07 completed Prescrib ed Elsewher e: No Locat ion: [facility] odify By: augustin castrountharvey DateTime : 09/21/19 12 10:30:00 AM Not Available Not Available Not Available meclizine 12.5 mg tablet TAKE 1 TABLET (12.5 MG TOTAL) BY MOUTH 3 (THREE) TIMES A DAY NEEDED FOR DIZZINES S 03/25 completed Not Available Not Available Not Available metronida zole 500 mg tablet 08/13 completed Not Available Not Available Not Available ciproflox acin 500 mg tablet take 1 tablet (500MG) by oral route every 12 hours 08/13 completed Not Available Not Available Not Available sulfameth oxazole 800 mg-trimet hoprim 160 mg tablet Take 1 tablet every 12 hours by oral route. 08/13 completed Not Available Not Available Not Available omeprazol e 40 mg capsule,d elayed release take 1 capsule (40MG) by oral route every day before a meal 09/21 completed Prescrib ed Elsewher e: Yes Loca tion: [facility] odify By: yuri eagle Encou nter DateTime : 02/08/20 13 03:00:00 PM Not Available Not Available Not Available doxycycli ne monohydra te 100 mg tablet 08/13 completed Not Available Not Available Not Available Nexium 20 mg capsule,d elayed release take 1 capsule by oral route every day 02/07 completed Prescrib ed Elsewher e: Yes [facility] odify By: augustin Evi chapincito DateTime : 06/21/20 11 07:13:25 PM Not Available Not Available Not Available benzonata te 100 mg capsule TAKE 1 CAPSULE BY MOUTH EVERY 8 HOURS NEEDED active Not Available Not Available No t Available doxycycli ne monohydra te 100 mg capsule TAKE 1 TABLET BY MOUTH 2 (TWO) TIMES A DAY FOR 10 DAYS 04/24 completed Not Available Not Available Not Available paroxetin e 20 mg tablet Take 1 tablet every day by oral route for 30 days. active Not Available Not Available No t Available pantopraz ole 40 mg tablet,de layed release 08/13 completed Not Available Not Available Not Available oseltamiv ir 75 mg capsule active Not Available Not Available Not Available Prozac 20 mg capsule take 1 capsule by oral route every day in the morning 08/13 completed Prescrib ed Elsewher e: No [facility]at [facility]ify By: yuri Dolanou nter DateTime : 07/10/20 15 03:45:00 PM Not Available Not Available Not Available esomepraz ole magnesium 40 mg capsule,d elayed release active Not Available Not Available Not Available metoprolo l tartrate 50 mg tablet 08/13 completed Not Available Not Available Not Available buspirone 7.5 mg tablet TAKE 1 TABLET BY MOUTH THREE TIMES DAILY 08/13 completed Not Available Not Available Not Available monteluka st 10 mg tablet active Not Available Not Available Not Available metoprolo l succinate ER 25 mg tablet,ex tended release 24 hr take 1 tablet by oral route every day 09/21 completed Prescrib ed Elsewher e: Yes Loca tion: [facility] odify By: emil leary DateTime : 06/27/20 14 02:30:00 PM Not Available Not Available Not Available azelastin e 137 mcg (0.1 %) nasal spray ADMINIST ER 2 SPRAYS IN EACH NOSTRIL DAILY. 03/25 completed Not Available Not Available Not Available estradiol 0.01% (0.1 mg/gram) vaginal cream insert 1gm per vagina nightly x 2wks, then, use 2x/wk for maintena nce. 04/24 completed Not Available Not Available Not Available methylpre dnisolone 4 mg tablets in a dose pack active Not Available Not Available Not Available albuterol sulfate HFA 90 mcg/actua tion aerosol inhaler INHALE 2 PUFFS BY MOUTH EVERY 4 TO 6 HOURS NEEDED FOR SHORTNES S OF BREATH active Not Available Not Available No t Available fluticaso ne propionat e 50 mcg/actua tion nasal spray,yahaira pension ADMINIST ER 2 SPRAYS INTO EACH NOSTRIL DAILY active Not Available Not Available No t Available metformin ER 500 mg tablet,ex tended release 24 hr active Not Available Not Available Not Available atenolol 50 mg tablet 08/13 completed Not Available Not Available Not Available progester one micronize d 100 mg capsule Take 1 capsule every day by oral route at dinner for 90 days. 04/24 completed Not Available Not Available Not Available nitrofura ntoin monohydra te/macroc rystals 100 mg capsule TAKE 1 CAPSULE (100 MG TOTAL) BY MOUTH 2 (TWO) TIMES A DAY FOR 5 DAYS 03/25 completed Not Available Not Available Not Available omeprazol e 08/13 completed Not Available Not Available Not Available atenolol 03/25 completed Not Available Not Available Not Available esomepraz ole magnesium active Not Available Not Available No t Available Arnuity Ellipta 200 mcg/actua tion powder for inhalatio n active Not Available Not Available Not Available Breo Ellipta 200 mcg-25 mcg/dose powder for inhalatio n active Not Available Not Available Not Available Breztri Aerospher e 160 mcg-9mcg- 4.8mcg/ac tuation HFA aerosol inhaler active Not Available Not Available Not Available Vitals Date Recorded Body height Body mass index (BMI) Body weight Systolic blood pressure Diastolic blood pressure Provider Name and Address Organization Details Last Updated DateTime 09/08/2021 154.31 cm 29 kg/m2 05248.04 g 132 mm[Hg] 80 mm[Hg] Jessica Goncalves [facility] 09:45:14 Date Recorded Body height Body mass index (BMI) Body weight Systolic blood pressure Diastolic blood pressure Provider Name and Address Organization Details Last Updated DateTime 03/25/2023 154.31 cm 28.4 kg/m2 44091.26 g 139 mm[Hg] 89 mm[Hg] Linda Good [facility] 3 16:23:42 Date Recorded Systolic blood pressure Diastolic blood pressure Provider Name and Address Organization Details Last Updated DateTime 03/25/2023 126 mm[Hg] 80 mm[Hg] Nancy Steele, [facility]- [address], [place], [address], [facility] 03/25/2023 17:47:04 Date Recorded Body height Body mass index (BMI) Body weight Systolic blood pressure Diastolic blood pressure Provider Name and Address Organization Details Last Updated DateTime 05/27/2023 154.31 cm 29.3 kg/m2 37304.22 g 134 mm[Hg] 87 mm[Hg] Linda Funk [facility] 3 17:42:33 Date Recorded Body height Body mass index (BMI) Body weight Systolic blood pressure Diastolic blood pressure Provider Name and Address Organization Details Last Updated DateTime 03/20/2024 154.31 cm 29.9 kg/m2 15485 g 133 mm[Hg] 89 mm[Hg] Sue Friedman [facility] 4 16:08:53 Date Recorded Body height Body mass index (BMI) Body weight Systolic blood pressure Diastolic blood pressure Provider Name and Address Organization Details Last Updated DateTime 05/16/2024 154.31 cm 29.3 kg/m2 84782.22 g 143 mm[Hg] 83 mm[Hg] Molly Cortes [facility] 4 16:00:11 Social History Question Answer Notes LastModified by Organizat ion Details LastModified Time Tobacco Smoking Status Never Smoker Jessenia montilla, [facility] 05/27/2023 17:28:52 Do You Have An Advance Directive? No [email or web address] Information not available 05/16/2024 What Is Your Level Of Alcohol Consumption? None [email or web address] Information not available 05/16/2024 Are You Blind Or Do You Have Difficulty Seeing? No [email or web address] Information not available 05/16/2024 What Is Your Level Of Caffeine Consumption? Occasional [email or web address] Information not available 05/16/2024 In The 14 Days Before Symptom Onset, Have You Had Close Contact With A Laboratory-confir med COVID-19 While That Case Was Ill? No [email or web address] Information not available 05/16/2024 In The 14 Days Before Symptom Onset, Have You Had Close Contact With A Person Who Is Under Investigation For COVID-19 While That Person Was Ill? No [email or web address] Information not available 05/16/2024 Have You Been To An Area Known To Be High Risk For COVID-19? No [email or web address] Information not available 05/16/2024 Are You Deaf Or Do You Have Serious Difficulty Hearing? No [email or web address] Information not available 05/16/2024 What Type Of Diet Are You Following? REGULAR Information not available 05/16/2024 What Is The Highest Grade Or Level Of School You Have Completed Or The Highest Degree You Have Received? [id number] [email or web address] Information not available 05/16/2024 What Is Your Occupation? [employer] [email or web address] Information not available 05/16/2024 Are There Any Guns Present In Your Home? No [email or web address] Information not available 05/16/2024 Do You Use Protection During Sex? No [email or web address] Information not available 05/16/2024 Do You Use Your Seat Belt Or Car Seat Routinely? Yes Information not available 05/16/2024 Do You Have Smoke And Carbon Monoxide Detectors In Your Home? Yes Information not available 05/16/2024 How Much Tobacco Do You Smoke? No [email or web address] Information not available 05/16/2024 Do You Feel Stressed (tense, Restless, Nervous, Or Anxious, Or Unable To Sleep At Night)? [id number] [email or web address] Information not available 05/16/2024 Do You Use Any Illicit Or Recreational Drugs? No [email or web address] Information not available 05/16/2024 Do You Use Sunscreen Routinely? No [email or web address] Information not available 05/16/2024 Has Tobacco Cessation Counseling Been Provided? No [email or web address] Information not available 05/27/2023 Have You Used IV Drugs? No Information not available 05/16/2024 Do You Or Have You Ever Used Any Other Forms Of Tobacco Or Nicotine? No [email or web address] Information not available 05/27/2023 Sex: Unknown Functional Status Question Answer Note LastModified by Organizat ion Details LastModified Time Do you have difficulty walking or climbing stairs? No [email or web address] Information not available 05/27/2023 Are you able to walk? [email or web address] Information not available 05/16/2024 Are you able to care for yourself? Yes [email or web address] Information not available 05/27/2023 Do you have difficulty dressing or bathing? No [email or web address] Information not available 05/27/2023 What is your exercise level? Occasional [email or web address] Information not available 05/16/2024 Mental Status None recorded. Family History Relationship Description Onset Age of this Age Resolved Age Notes LastModified by Organization Details LastModified Time Mother Headache [email or web address] Not availabl e 05/16/2024 15:54:49 Mother Anxiety disorder [email or web address] Not available 2019 09:48:16 Mother Anxiety disorder Not available 2023 15:54:49 Maternal Grandmother Malignant tumor of colon [email or web address] Not available 2019 09:48:27 Maternal Grandmother Malignant tumor of colon [email or web address] Not available 2023 15:54:49 Medical History Condition Response Allergies (Food, seasonal, environmental ) Y Acid Reflux (GERD) Y Endometriosis Y Headaches Y Hypertension Y Gynecological History Statement/Question Response Abnormal Pap N Date of Last Mammogram 09/27/2020 Date of LMP 07/26/2015 On BCP's at Conception? N N STIs/STDs N HPV Vaccine N Current Control Method Tubal Ligat ion Age at First Child 24 Are cycles usually normal N Most Recent Bone Density Sexually Active? Y Menses Monthly N Age of first menstrual cycle 13 Date of Last Pap Smear 08/13/2020 Sexual Problems? N Desired Control Method None LMP Approximate N Obstetrics History GPAL:G 2 P 2 0 0 2 Type Value Full Term 2 Living 2 Total 2 Past Encounters Encounter ID Performer Location Encounter Start Date Encounter Closed Date Diagnosis/Indication Diagnosis SNOMED-CT Code Diagnosis ICD10 Code Diagnosis Note [id number] Nancy Steele [facility] [address],[facility] [place] [address] 01/15/2020 13:53:28 01/15/2020 16:24:03 Urinary tract infectious disease 40134066 N39.0 Acute urin aust[place] tract infection 657830741 N39.0 Having prominent UTI sx's today Treated with Macrobid BID x 7 days. Testing sent. Climacteric flushing 427 607448 N95.1 N94.19 We agreed to pelvic exam with upcomingn well woman. Ordering labs which she will return fasting & then we will have results to review for next visit. Can discuss options hormonal/n on-hormona l HRT therapy. Time spent in visit is a total of 30 mins with at least 50% of visit consisting of counseling and review of plan of care. Adult heal th examination 290318495 Z00.00 Will ensure she takes BP med next visit as she forgot this morning. [id number] Nancy Steele , [facility] [address] [address] 08/13/2020 13:37:43 08/14/2020 16:02:30 Gynecologic examination 61137326 Z01.419 Take Calcium with Vitamin D 12-1500mg daily. Do monthly self breast exams. It is advised to get annual flu shot in the fall and she could obtain at [facility] or [facility] take care clinic. If you haven't received the Tdap vaccine in the last 10 years you should obtain one as well. Have mammogram yearly, bone density every 2-3 years and colonoscop y every 5-10 years depending on findings and history. Engage in daily exercise of low impact aerobic exercise 45-60 minutes 4-5 times weekly. Avoid tobacco and illicit drugs as well as using moderation with alcohol intake less than 1-2 8 oz beverages daily. This lifestyle behavior pattern will lead to less health conditions and longer life span. If BMI greater than 25 weight watchers or dietary consult advised. Questions have been answered. Patient appears to understand instructio ns, but if you have any further questions call or respond to this email Additional precaution austin measures were taken to minimize potential exposure to the Covid-19 virus during this patient s visit, including available hand ticket taker upon arrive, temperatur e check and being asked a series of screening questions. All staff wore face coverings during this encounter, as well as provided additional cleaning and sanitizing of all surfaces, including countertop s, pens, chairs, door handles, light switches, etc, prior to and following the patient s visit. Atrophy of vagina 159697 009 N95.2 We discussed daily moisturizi ng and use of vegetale oil with sex. We discussed Vag estrogen therapy. WIll call if wants to start this We can send Rx in & she will f/u x 3mos if decides to pursue this therapy. Counseled on medication R/B's, Most common side effects, & use. [place]. [id number] Nancy Steele [facility] [address] [address] 09/21/2020 11:41:03 09/23/2020 13:56:10 Menopausal syndrome 579633577 N95.9 We discussed Menopausal Hormone therapy (MHT) for women with intact uterus with the goals of reliving vaso-motor sx's using estrogen/p rogestin therapy (EPT) using lowest doses for shortest duration in women 40-59yo. Contraindi cations include: Hx of DVT or thrombolic events, High cholestero l, Hx of breast cancer, known CHD, active liver disease, unexplaine d vag bleeding, high risk endometria l cancer, TIA. Side effects can include but are not limited to: Irregular vag bleeding,, breast tenderness , nausea, weight changes, libido changes, nausea. Adverse Rxn: Elevated BP migraine w/ visual changes, breast cancer dx, CA/stroke, DVT/PE, Endometria l cancer. Please contact office with any new or worsening side effects or adverse reactions. Or if a medical emergency please go to nearest ED/Urgency care for further evaluation . HTN well controlled . Labs updated We agreed to avoid estrogen based products at this time. Her biggest complaints are night time flashes & irritabili ty of mood. We agreed to start with trial of Prometrium (no peanut allergy) 100mg . Consider Non-hrt for mood if this not fully help low dose SSRI moving forward such as Prozac. RTO x 8wks Time spent in visit is a total of 28 mins with at least 50% of visit consisting of counseling and review of plan of care. Dyspareunia [id number] N95 .2 Counseled on medication R/B's, Most common side effects, & use. All questions were answered to patient satisfacti on. Will continue to moisturize but next visit discuss switching to vegetable basedmoist urizer and not [place] brand products. [id number] Nancy Steele [facility] [address],[place] [address] 04/24/2021 13:52:05 04/24/2021 14:57:03 Menopausal symptom [id number] N95.1 F41.9 Trial of low dose SSRI vs HRT since she felt very shakey and more anxious on these HRT treatments . Counseled on r/b's, most common side effects of this therapy with instructio ns to stop medication with any significan t abnormal change in mood especially with thoughts of suicide/se lf-harm/neves rm to others. Understand ing verbalized . Time spent in visit is a total of 15 mins with at least 50% of visit consisting of counseling and review of plan of care.Addit ional precaution austin measures were taken to minimize potential exposure to the Covid-19 virus during this patient s visit, including available hand ticket taker upon arrive, temperatur e check and being asked a series of screening questions. All staff wore face coverings during this encounter, as well as provided additional cleaning and sanitizing of all surfaces, including countertop s, pens, chairs, door handles, light switches, etc, prior to and following the patient s visit. [id number] Nancy Steele [facility] [address],[place] [address] 09/08/2021 09:28:10 09/08/2021 10:11:13 Gynecologic examination [id number] Z01.419 Take Calcium with Vitamin D 12-1500mg daily. Do monthly self breast exams. It is advised to get annual flu shot in the fall and she could obtain at [facility] or [facility] care clinic. If you haven't received the Tdap vaccine in the last 10 years you should obtain one as well. Have mammogram yearly, bone density every 2-3 years and colonoscop y every 5-10 years depending on findings and history. Engage in daily exercise of low impact aerobic exercise 45-60 minutes 4-5 times weekly. Avoid tobacco and illicit drugs as well as using moderation with alcohol intake less than 1-2 8 oz beverages daily. This lifestyle behavior pattern will lead to less health conditions and longer life span. If BMI greater than 25 weight watchers or dietary consult advised. Questions have been answered. Patient appears to understand instructio ns, but if you have any further questions call or respond to this email Additional precaution austin measures were taken to minimize potential exposure to the Covid-19 virus during this patient s visit, including available hand ticket taker upon arrive, temperatur e check and being asked a series of screening questions. All staff wore face coverings during this encounter, as well as provided additional cleaning and sanitizing of all surfaces, including countertop s, pens, chairs, door handles, light switches, etc, prior to and following the patient s visit.Pap/ hpv q5yrs per asccp unless otherwisei indicated. COlon UTDDexa orderedmam mo orderedGen [facility] screen discussed Postmenopausal state [id number] Z78.0 Dyspareunia [id number] N95 .2 Counseled on medication R/B's, Most common side effects, & use. All questions were answered to patient satisfacti on. Will continue to moisturize but next visit discuss switching to vegetable basedmoist urizer and not [place] brand products. If would like to add vaginal estrogen therapy please call & let me know. [id number] Nancy Steele , [facility] [address] [address] 03/25/2023 16:13:41 03/25/2023 18:10:12 Gynecologic examination [id number] Z01.419 Take Calcium with Vitamin D 12-1500mg daily. Do monthly self breast exams. It is advised to get annual flu shot in the fall and she could obtain at [facility] or [facility] care clinic. If you haven't received the Tdap vaccine in the last 10 years you should obtain one as well. Have mammogram yearly, bone density every 2-3 years and colonoscop y every 5-10 years depending on findings and history. Engage in daily exercise of low impact aerobic exercise 45-60 minutes 4-5 times weekly. Avoid tobacco and illicit drugs as well as using moderation with alcohol intake less than 1-2 8 oz beverages daily. This lifestyle behavior pattern will lead to less health conditions and longer life span. If BMI greater than 25 weight watchers or dietary consult advised. Questions have been answered. Patient appears to understand instructio ns, but if you have any further questions call or respond to this email Additional precaution austin measures were taken to minimize potential exposure to the Covid-19 virus during this patient s visit, including available hand ticket taker upon arrive, temperatur e check and being asked a series of screening questions. All staff wore face coverings during this encounter, as well as provided additional cleaning and sanitizing of all surfaces, including countertop s, pens, chairs, door handles, light switches, etc, prior to and following the patient s visit. Pap/hpv due q3-5yrs per asccp unless otherwise indicated. STD Screen declinedGe netic Screen discussedC olon Screen UTD pcpDexa Screen UTD PCPRoutine Labs UTD PCP Screening mammography 24 [id number] Z12.31 [id number] [facility] [address],[facility] [place] [address] 05/27/2023 17:28:11 05/27/2023 18:14:35 Menopausal symptom [id number] N95.1 F41.9 Patient is here today for a medicaton check of SSRI used for non-HRT menopause sx's. She voices goals of therapy have been met with use of this therapy. She denies neg side effects. She is eating, drinking, sleeping well; moods are stable. Very happy with current outcome. Wishes to continue this method of pharmacolo gical therapy. Appropriat e to continue this medication . Time spent in visit is a total of 15 mins with at least 50% of visit consisting of counseling and review of plan of care. [id number] TRACEY PRIETO MD [facility] [address],[place] [address] 03/20/2024 15:52:51 03/20/2024 23:00:15 [id number] TRACEY PRIETO MD [facility] [address],[place] [address] 05/16/2024 15:10:43 05/17/2024 09:42:35 Menopausal symptom [id number] N95.1 - patient reports increased anxiety and hot flashes- currently taking paroxetine 20mg without issue and with improvemen t- discussed HRT, patient declines at this time- would like to continue vitamin E and monitor Health Concerns Section Related Observation LastModified by Organization Detai ls LastModified Time None Recorded Concern Status LastModified by Organization Details LastModified Time None Recorded Advance Directives Directive N: Payers Encounter Date Sequence Insurance Name Policy Number Policy Boo Covered Member ID Boo Member ID Guarantor Name 09/08/2021 [facility] - [employer] - [employer] [id number] Jeffy Spicer [id number] Cha Spicer 03/25/2023 [facility] - [employer] - [employer] [id number] Jeffy Spicer [id number] Cha Spicer 05/27/2023 [facility] - [employer] - [employer] [id number] Jeffy Spicer [id number] Cha Spicer 03/20/2024 [facility] - [employer] - [employer] [id number] Jeffy Spicer [id number] hCa Spicer 05/16/2024 [facility] - [employer] - [employer] [id number] Jeffy Spicer [id number] Cha Spicer Notes Date Note Type Note Provider Name and Address Organization Details Recorded Time 09/08/2021 text/html Annual Window Decorator Post-MenopausalRepor fuentes bypatient.Menopausal Symptoms:no menopausal symptoms; normal vaginal lubrication Vaginal Bleeding:history of menopause having occurred; no history of post menopausal bleeding Urinary Symptoms:no hematuria; no incontinence; no nocturia; no urinary frequency Vulva:no genital lesion; no vulvar atrophy Vagina:normal vaginal discharge; no vaginal atrophy Breast:no breast lump; no nipple discharge; no breast pain Sexual Complaints:no sexual complaints Psychological Symptoms:no depression; no anxiety Preventive Measures:encourage regular mammograms starting age 40; encourage self breast examination; encourage regular exercise; encourage no tobacco use; needs to schedule mammogram; history of recent colonoscopy; needs to schedule bone density Nancy Steele [facility] [address], [place], [address], [facility] 09/08/2021 10:05:54 03/25/2023 text/html Annual Window Decorator Post-MenopausalRepor fuentes bypatient.Menopausal Symptoms:no menopausal symptoms; normal vaginal lubrication Vaginal Bleeding:history of menopause having occurred; no history of post menopausal bleeding Urinary Symptoms:no hematuria; no incontinence; no nocturia; no urinary frequency Vulva:no genital lesion; no vulvar atrophy Vagina:normal vaginal discharge; no vaginal atrophy Breast:no breast lump; no nipple discharge; no breast pain Sexual Complaints:no sexual complaints Psychological Symptoms:no depression; no anxiety Preventive Measures:encourage regular mammograms starting age 40; encourage self breast examination; encourage regular exercise; encourage no tobacco use; needs to schedule mammogram; history of recent colonoscopy [facility] [address], [place], [address], [facility] 03/25/2023 17:48:24 05/27/2023 text/html Here today for medication check of Non-Hormonal HRT. [facility] Steele [facility] [address], [place], [address], [facility] 05/27/2023 18:11:03 05/16/2024 text/html Patient presents for discussion of postmenopausal anxiety and mood changes. She also reports increased hot flashes. Has started taking vitamin E and has noticed an improvement in her symptoms. She continues on paroxetine 20mg without issue. TRACEY PRIETO MD [address], [place], [address], [facility] 05/17/2024 00:09:24 OBGyn Episode Ob Episode Information Episode Created Date Number of Fetuses Patient Bloodtype Patient rh Status Prepregnancy Weight lbs Domestic Partner Domestic Partner Phone Father Name Administrative Clerk Status 01/15/20 20 1 CLOSED Fetus Data First Name Last Name Admitted to NICU Weight (g) Sex Living Outcome Pediatric Complications Fetus ID Race Codes Race Delivery Type 3798.83 3 F Full Term 2450 Primary Zack Calculation Initial Zcak Date Initial Exam Date Initial Exam Provider Initial Ultrasound Date Last Menstrual Period Date Ultra Sound Weeks Gestation 0 Eighteen To Twenty Week Zack Update Ultra Sound Date Fundal Height At Umbil Quickening Date Ultra Sound Latest Weeks Gestation Final Zack Confirmed By Final Zack Confirmed Date Final Zack Date Ultra Sound Latest Days Gestation 0 0 Menstrual History Last Menstrual Date Menses Monthly On Bcp Conception Prior Menses Frequency Hcg Plus Date Menarche Onset Age Delivery Information Delivery Date Delivery Type Labor Anesthesia Weeks Gestation Incision Type Labor Labor Length Hrs Delivered By Post Complications Tubal Sterilization Discharge Date Comments 4 37 Discharge Information Feeding Method Contraceptive Method Maternal HG B and HCT Levels Ob Episode Information Episode Created Date Number of Fetuses Patient Bloodtype Patient rh Status Prepregnancy Weight lbs Domestic Partner Domestic Partner Phone Father Name Administrative Clerk Status 01/15/20 20 1 CLOSED Fetus Data First Name Last Name Admitted to NICU Weight (g) Sex Living Outcome Pediatric Complications Fetus ID Race Codes Race Delivery Type 3912.23 1 M Full Term 2451 Repeat Zack Calculation Initial Zack Date Initial Exam Date Initial Exam Provider Initial Ultrasound Date Last Menstrual Period Date Ultra Sound Weeks Gestation 0 Eighteen To Twenty Week Zack Update Ultra Sound Date Fundal Height At Umbil Quickening Date Ultra Sound Latest Weeks Gestation Final Zack Confirmed By Final Zack Confirmed Date Final Zack Date Ultra Sound Latest Days Gestation 0 0 Menstrual History Last Menstrual Date Menses Monthly On Bcp Conception Prior Menses Frequency Hcg Plus Date Menarche Onset Age Delivery Information Delivery Date Delivery Type Labor Anesthesia Weeks Gestation Incision Type Labor Labor Length Hrs Delivered By Post Complications Tubal Sterilization Discharge Date Comments 5 37 Discharge Information Feeding Method Contraceptive Method Maternal HG B and HCT Levels
--- OUTSIDE RECORDS SUMMARY | 2024-11-02 11:32 | XMS_ITS ---
Author Organization [facility] Address [address] [place] [address] Care Team Providers Care Corporate Development Analyst Name Role Phone Alejandra Sharif Primary Care Provider Tiffany Forrester [phone] REASON FOR VISIT Needs call back from office Encounters Encounter Location Date Provider Diagnosis [facility] [address] [place] [address] 05/09/2024 Tiffany Vasquez Plan Of Treatment No Information Progress Notes * Cha SPICERDOB:1965 ( 58 yo F)Acc No.[id number]:05/09/2024 Patient: Cha NICHOLSON :1965 A ge:58 Y S ex:Female Address:[address] [place] [address], [phone] * true * Date: Generated for Noblei ng/Faabnerg/eTransmitting on: 0 11/02/2024 11:31 AM CDT
[2024-11-02 19:48] LABS: Iron 51 ug/dL (37-170)
[2024-11-02 19:59] LABS: Percent Iron Saturation 13 % (20-50)
== END 2024-11-02 10:43 | disposition home or self-care (01) ==
PROVIDERS: PCP Nurse Practitioner Adult Health; Visit Provider Nurse Practitioner Adult Health
DX: D64.9 Anemia, unspecified (principal)
CPT/HCPCS: 36415; 82728; 83540; 83550